=== PATIENT | female | born 1985 | race African-American/Black ===

== ENCOUNTER 2019-06-05 15:37 | Emergency (ER) | payer MEDICARE, OTHER ==
--- NOTE | 2019-06-05 17:28 | RAD ---
RIGHT FOOT THREE VIEWS: 06/05/19 HISTORY: Diabetic foot ulcer. Fairly extensive vascular calcifications are present. There is no plain film evidence for osteomyelit is. IMPRESSION: No plain film evidence of osteomyelitis. POS: [facility]
[2019-06-05 17:54] LABS: #Basophils 0.1 thou/uL (0.0-0.2); #Eosinphils 0.3 thou/uL (0.0-0.7); #Lymphocytes 2.2 thou/uL (1.20-3.40); #Monocytes 0.4 thou/uL (0.11-0.59); #Neutrophils 6.4 thou/uL (1.40-6.50); %Basophils 0.6 % (0.0-1.0); %Eosinophils 3.2 % (0.0-10.0); %Lymphocytes 23.1 % (21.0-51.0); %Monocytes 4.5 % (0.0-10.0); %Neutrophils 68.6 % (42.0-75.0); Hemoglobin 11.7 g/dL (12.0-16.0); Mean Corpuscular HGB CONC 32.6 g/dL (32.0-36.0); Mean Corpuscular Hemoglobin 28.5 pg (27.0-31.0); Mean Corpuscular Volume 87.5 fL (78.0-98.0); Mean Platelet Volume 6.9 fL (7.4-10.4); Platelet Count 333 thou/uL (130-400); RBC Distribution Width 13.4 % (11.5-14.5); Red Blood Cell (RBC) Count 4.11 mill/uL (4.20-5.40); White Blood Cell (WBC) Count 9.4 thou/uL (4.8-10.8)
[2019-06-05] MEDS ORDERED: Lidocaine 1% PF 5 ML VIAL ONE (18:08)
[2019-06-05 18:21] LABS: ALT (SGPT) 9 U/L (8-55); AST (SGOT) 11 U/L (5-34); Albumin 3.8 g/dL (3.5-5.0); Alkaline Phosphatase 127 U/L (40-110); Anion Gap 12 mmol/L (10-20); BUN (Urea Nitrogen) 26 mg/dL (7.0-18.7); Bilirubin, Total 0.2 mg/dL (0.2-1.2); Calc. Creatinine Clearance 0 mL/min (70-130); Calcium 9.5 mg/dL (7.8-10.44); Carbon Dioxide 23 mmol/L (22-29); Chloride 106 mmol/L (98-107); Estimated GFR-MDRD 25; Globulin 3.9 g/dL (2.4-3.5); Glucose 306 mg/dL (70-105); Protein, Total 7.7 g/dL (6.0-8.3); Sodium 137 mmol/L (136-145)
[2019-06-05] MEDS ORDERED: Metoprolol Tartrate 25 MG TAB ONE (18:41)
== END 2019-06-05 18:50 | disposition home or self-care (01) ==
LOC: ERS 15:37
DX: S90.821A Blister (nonthermal), right foot, initial encounter (principal); I10 Essential (primary) hypertension; E11.9 Type 2 diabetes mellitus without complications; Z79.4 Long term (current) use of insulin; Z79.899 Other long term (current) drug therapy; X58.XXXA Exposure to other specified factors, initial encounter
CPT/HCPCS: 36415; 80053; 83605; 85025; J2001

== ENCOUNTER 2020-08-11 17:51 | Inpatient (IN) | payer MEDICARE, OTHER ==
[2020-08-11 18:34] LABS: Actual Bicarbonate (HCO3v) 19 mEq/L (22-28); Analyzer IN Cardio ER; Base Excess -6.2 mEq/L (-2.0 to +3.0); Calcium, Ionized (venous) 1.12 mmol/L (1.16-1.32); Chloride (VBG) 100 mmol/L (98-106); Hemoglobin (Hb) 11.4 g/dL (11.7-15.5); Potassium (VBG) 4.53 mmol/L (3.70-5.30); Sodium 139.5 mmol/L (133-146); pH (venous) 7.35 (7.32-7.43)
[2020-08-11 18:44] LABS: #Lymphocytes 0.7 thou/uL (1.20-3.40); #Monocytes 0.2 thou/uL (0.11-0.59); #Neutrophils 8.5 thou/uL (1.40-6.50); %Basophils 0.5 % (0.0-1.0); %Eosinophils 0.1 % (0.0-10.0); %Lymphocytes 7.7 % (21.0-51.0); %Monocytes 1.7 % (0.0-10.0); %Neutrophils 90.1 % (42.0-75.0); Hemoglobin 10.5 g/dL (12.0-16.0); Mean Corpuscular HGB CONC 32.4 g/dL (32.0-36.0); Mean Corpuscular Hemoglobin 27.6 pg (27.0-31.0); Mean Corpuscular Volume 85.2 fL (78.0-98.0); Mean Platelet Volume 7.5 fL (7.4-10.4); Platelet Count 252 thou/uL (130-400); RBC Distribution Width 13.5 % (11.5-14.5); Red Blood Cell (RBC) Count 3.81 mill/uL (4.20-5.40); White Blood Cell (WBC) Count 9.4 thou/uL (4.8-10.8)
[2020-08-11 19:10] LABS: Phosphorus 3.9 mg/dL (2.3-4.7)
[2020-08-11] MEDS ORDERED: Nitroglycerin 2% Ointment 1 INCH/1 GM Packet ONE (19:10)
[2020-08-11] MEDS ORDERED: hydrALAZINE 20 MG/ML VIAL ONE (19:10)
[2020-08-11 19:12] LABS: ALT (SGPT) 8 U/L (8-55); AST (SGOT) 9 U/L (5-34); Albumin 4.7 g/dL (3.5-5.0); Alkaline Phosphatase 135 U/L (40-110); Anion Gap 25 mmol/L (10-20); BUN (Urea Nitrogen) 32 mg/dL (7.0-18.7); Bilirubin, Total 0.5 mg/dL (0.2-1.2); Calc. Creatinine Clearance 0 mL/min (70-130); Calcium 9.9 mg/dL (7.8-10.44); Carbon Dioxide 20 mmol/L (22-29); Chloride 100 mmol/L (98-107); Globulin 3.8 g/dL (2.4-3.5); Magnesium 2.3 mg/dL (1.6-2.6); Potassium 4.6 mmol/L (3.5-5.1); Protein, Total 8.5 g/dL (6.0-8.3); Sodium 140 mmol/L (136-145)
[2020-08-11] MEDS ORDERED: Labetalol HCl 100 MG/20 ML VIAL ONE (19:15)
[2020-08-11 19:20] LABS: Glucose 648 mg/dL (70-105)
[2020-08-11] MEDS ORDERED: Insulin Regular 300 UNITS/3 ML VIAL ONE (19:20)
[2020-08-11] MEDS ORDERED: Dextrose 5 %-0.45 % NaCl 1,000 ML IV PRN (19:57)
[2020-08-11] MEDS ORDERED: NS 0.9% w/ 20 MEQ KCL 1,000 ML IV PRN (19:57)
[2020-08-11] MEDS ORDERED: Electrolyte Replacement Protocol 1 EACH IVPB ONE (19:57)
[2020-08-11] MEDS ORDERED: Sodium Chloride 0.9% 1,000 ML IV PRN ×4 (19:57)
[2020-08-11] MEDS ORDERED: HUMULIN R 100 UNITS in Sodium Chloride 0.9% 100 ML IVPB SCH (20:00)
[2020-08-11] MEDS ORDERED: Labetalol HCl 100 MG/20 ML VIAL SLOW IVP PRN (20:02)
[2020-08-11 20:49] LABS: Anion Gap 20 mmol/L (10-20); BUN (Urea Nitrogen) 30 mg/dL (7.0-18.7); Calc. Creatinine Clearance 0 mL/min (70-130); Calcium 8.7 mg/dL (7.8-10.44); Carbon Dioxide 19 mmol/L (22-29); Chloride 108 mmol/L (98-107); Glucose 491 mg/dL (70-105); Potassium 3.6 mmol/L (3.5-5.1); Sodium 143 mmol/L (136-145)
[2020-08-11] MEDS ORDERED: Ondansetron PF 4 MG/2 ML Vial ONE (21:02)
[2020-08-11 21:56] LABS: SARS-CoV-2 NAA Rapid Test Not Detected (NotDetected)
[2020-08-11] MEDS: NS 0.9% w/ 20 MEQ KCL 1,000 ML IV PRN (23:10)
[2020-08-11] MEDS: cloNIDine 0.3mg/24 Hour PATCH TD SCH (23:11)
[2020-08-12] MEDS: Ondansetron PF 4 MG/2 ML Vial IVP PRN ×3 (00:27→20:23)
[2020-08-12] MEDS ORDERED: Labetalol HCl 100 MG/20 ML VIAL SLOW IVP SCH (00:30)
[2020-08-12] MEDS: NS 0.9% w/ 20 MEQ KCL 1,000 ML IV PRN (00:34)
[2020-08-12 01:13] LABS: Anion Gap 17 mmol/L (10-20); BUN (Urea Nitrogen) 27 mg/dL (7.0-18.7); Calc. Creatinine Clearance 16 mL/min (70-130); Carbon Dioxide 20 mmol/L (22-29); Chloride 113 mmol/L (98-107); Glucose 318 mg/dL (70-105); Sodium 146 mmol/L (136-145)
[2020-08-12] MEDS: D5 1/2 NS w/20 mEq KCL 1,000 ML IV PRN ×2 (02:17→05:46)
[2020-08-12] MEDS: Acetaminophen 325 MG TAB PO PRN (03:18)
[2020-08-12] MEDS ORDERED: Promethazine HCl 25 MG in Sodium Chloride 0.9% 50 ML IVPB SCH (04:00)
[2020-08-12 04:36] LABS: #Lymphocytes 1.7 thou/uL (1.20-3.40); #Monocytes 0.5 thou/uL (0.11-0.59); #Neutrophils 8.3 thou/uL (1.40-6.50); %Basophils 0.3 % (0.0-1.0); %Eosinophils 0.1 % (0.0-10.0); %Lymphocytes 16.3 % (21.0-51.0); %Monocytes 4.5 % (0.0-10.0); %Neutrophils 78.8 % (42.0-75.0); Hemoglobin 9.5 g/dL (12.0-16.0); Mean Corpuscular HGB CONC 32.4 g/dL (32.0-36.0); Mean Corpuscular Hemoglobin 27.5 pg (27.0-31.0); Mean Corpuscular Volume 85.1 fL (78.0-98.0); Mean Platelet Volume 7.1 fL (7.4-10.4); Platelet Count 278 thou/uL (130-400); RBC Distribution Width 13.6 % (11.5-14.5); Red Blood Cell (RBC) Count 3.44 mill/uL (4.20-5.40); White Blood Cell (WBC) Count 10.6 thou/uL (4.8-10.8)
[2020-08-12 04:43] LABS: Anion Gap 12 mmol/L (10-20); BUN (Urea Nitrogen) 25 mg/dL (7.0-18.7); Calc. Creatinine Clearance 16 mL/min (70-130); Calcium 9.4 mg/dL (7.8-10.44); Carbon Dioxide 23 mmol/L (22-29); Chloride 114 mmol/L (98-107); Glucose 228 mg/dL (70-105); Sodium 145 mmol/L (136-145)
[2020-08-12 07:44] LABS: Bacteria/HPF None Seen HPF (None Seen); Bilirubin Negative (Negative); Blood, Urine Trace (Negative); Clarity Clear (Clear); Glucose, Urine (Dipstick) Greater than 1000 mg/dL (Negative); Ketone, Urine 10 mg/dL (Negative); Leukocyte Negative Leu/uL (Negative); Nitrite Negative (Negative); Protein, Urine (Dipstick) 200 mg/dL (Neg-Trace); RBC/HPF 0-3 HPF (0-3); Specific Gravity, Urine 1.009 (1.002-1.036); Urobilinogen Normal mg/dL (Less than 2); pH, Urine 5.5 (5.0-9.0)
[2020-08-12 07:48] LABS: Urine Culture Reflex No No
[2020-08-12 07:54] LABS: Creatinine, Urine 28.36 mg/dL (47-110)
[2020-08-12] MEDS ORDERED: Famotidine 20 MG TAB PO SCH (09:00)
[2020-08-12] MEDS ORDERED: cloNIDine 0.1 MG TAB PO SCH (09:30)
[2020-08-12] MEDS: Enoxaparin Sodium 30 MG/0.3 ML SYRINGE SC SCH (09:32)
[2020-08-12] MEDS ORDERED: Carvedilol 6.25 MG TAB ONE (13:04)
[2020-08-12] MEDS ORDERED: cloNIDine 0.1 MG TAB PO PRN (14:13)
[2020-08-12] MEDS ORDERED: Lantus 1000 UNITS/10 ML VIAL SC SCH (14:15)
[2020-08-12] MEDS ORDERED: Insulin Regular 300 UNITS/3 ML VIAL SC PRN ×2 (14:15→17:33)
[2020-08-12] MEDS ORDERED: Amlodipine 5 MG TAB PO SCH ×2 (14:15→21:00)
[2020-08-12] MEDS ORDERED: 1/2 NS w/KCL 20 mEq 1,000 ML IV SCH (14:15)
[2020-08-12] MEDS ORDERED: Carvedilol 6.25 MG TAB PO SCH (14:15)
[2020-08-12] MEDS ORDERED: Dextrose 5% in Water 1,000 ML IV PRN (14:15)
[2020-08-12 16:28] LABS: Albumin 3.7 g/dL (3.5-5.0); Anion Gap 15 mmol/L (10-20); BUN (Urea Nitrogen) 19 mg/dL (7.0-18.7); BUN/Creatinine Ratio 5.85; Calc. Creatinine Clearance 18 mL/min (70-130); Calcium 9.4 mg/dL (7.8-10.44); Carbon Dioxide 20 mmol/L (22-29); Chloride 115 mmol/L (98-107); Glucose 101 mg/dL (70-105); Magnesium 1.8 mg/dL (1.6-2.6); Phosphorus 1.7 mg/dL (2.3-4.7); Potassium 4.6 mmol/L (3.5-5.1); Sodium 145 mmol/L (136-145)
[2020-08-12] MEDS ORDERED: Electrolyte Replacement Protocol FS PRN (17:00)
[2020-08-12] MEDS ORDERED: NIFEdipine XL 30 MG TAB PO SCH (17:00)
[2020-08-12] MEDS ORDERED: K-Phos Neutral 250 MG TAB PO SCH (17:00)
[2020-08-12] MEDS ORDERED: Sodium Chloride 0.45% 1,000 ML IV SCH (17:00)
[2020-08-12] MEDS ORDERED: Magnesium 2 GM/50 ML 2 GM in Premix Bag 1 BAG IVPB SCH (17:45)
[2020-08-12] MEDS ORDERED: Sodium Bicarbonate Tab 325 MG TAB PO SCH ×2 (18:15→21:00)
[2020-08-12 18:41] LABS: BHCG - Serum Negative (NEGATIVE); Pregs Control Background? CLEAR/WHITE (CLR/WHITE); Pregs Control Bar Appear? YES (CONTROL BAR)
[2020-08-12] MEDS ORDERED: Metoprolol Tartrate 50 MG TAB PO SCH (21:00)
[2020-08-12] MEDS: NIFEdipine XL 30 MG TAB PO SCH (21:05)
[2020-08-12 21:23] LABS: Amphetamine Not Detected (NotDetected); Barbiturates Screen Not Detected (NotDetected); Benzodiazepine Screen Not Detected (NotDetected); Cocaine Metabolite Screen Not Detected (NotDetected); Medtox Control Line Valid? VALID (VALID); Medtox Reader # READER 1; Methadone Not Detected (NotDetected); Methamphetamine Not Detected (NotDetected); Opiate Screen Not Detected (NotDetected); Oxycodone Screen Not Detected (NotDetected); Phencyclidine (PCP) Not Detected (NotDetected); THC/Cannabinoid Screen Not Detected (NotDetected); Tricyclic Screen Not Detected (NotDetected)
[2020-08-12] MEDS: Carvedilol 6.25 MG TAB PO SCH (22:05)
[2020-08-12] MEDS ORDERED: Dextrose 5 %-0.45 % NaCl 1,000 ML IV SCH (23:00)
[2020-08-13] MEDS ORDERED: Sodium Chloride 0.45% 1,000 ML IV SCH (03:00)
[2020-08-13] MEDS: Acetaminophen 325 MG TAB PO PRN ×2 (04:01→21:46)
[2020-08-13 04:30] LABS: Anion Gap 13 mmol/L (10-20); BUN (Urea Nitrogen) 19 mg/dL (7.0-18.7); Calc. Creatinine Clearance 16 mL/min (70-130); Calcium 9.4 mg/dL (7.8-10.44); Carbon Dioxide 20 mmol/L (22-29); Chloride 112 mmol/L (98-107); Glucose 111 mg/dL (70-105); Magnesium 2.6 mg/dL (1.6-2.6); Potassium 4.1 mmol/L (3.5-5.1); Sodium 141 mmol/L (136-145)
[2020-08-13] MEDS ORDERED: Morphine 4 MG/ML VIAL SLOW IVP SCH (06:00)
[2020-08-13 06:06] LABS: #Basophils 0.1 thou/uL (0.0-0.2); #Eosinphils 0.1 thou/uL (0.0-0.7); #Lymphocytes 2.9 thou/uL (1.20-3.40); #Monocytes 0.7 thou/uL (0.11-0.59); #Neutrophils 8.1 thou/uL (1.40-6.50); %Basophils 0.8 % (0.0-1.0); %Eosinophils 0.8 % (0.0-10.0); %Lymphocytes 24.5 % (21.0-51.0); %Neutrophils 67.9 % (42.0-75.0); Hemoglobin 9.1 g/dL (12.0-16.0); Mean Corpuscular HGB CONC 32.1 g/dL (32.0-36.0); Mean Corpuscular Hemoglobin 27.5 pg (27.0-31.0); Mean Corpuscular Volume 85.8 fL (78.0-98.0); Mean Platelet Volume 7.1 fL (7.4-10.4); Platelet Count 244 thou/uL (130-400); RBC Distribution Width 14.4 % (11.5-14.5); RBC Morphology Normal; White Blood Cell (WBC) Count 11.9 thou/uL (4.8-10.8)
[2020-08-13] MEDS: Enoxaparin Sodium 30 MG/0.3 ML SYRINGE SC SCH (08:21)
[2020-08-13] MEDS: Carvedilol 6.25 MG TAB PO SCH ×2 (08:21→21:23)
[2020-08-13] MEDS: NIFEdipine XL 30 MG TAB PO SCH (08:22)
[2020-08-13] MEDS: Lantus 1000 UNITS/10 ML VIAL SC SCH (08:22)
[2020-08-13] MEDS: Sodium Bicarbonate 150 MEQ in Dextrose 5% in Water 1,000 ML IV SCH (08:28)
[2020-08-13] MEDS ORDERED: Metoprolol Tartrate 50 MG TAB PO SCH (09:00)
[2020-08-13] MEDS: Labetalol HCl 100 MG/20 ML VIAL SLOW IVP PRN (13:19)
[2020-08-13] MEDS: Polyethylene Glycol 3350 17 GM Packet PO SCH (21:24)
[2020-08-13] MEDS: Senokot S 8.6-50 MG TAB PO SCH (21:24)
[2020-08-13] MEDS: Ondansetron PF 4 MG/2 ML Vial IVP PRN (21:34)
[2020-08-13] MEDS ORDERED: traZODone HCl 50 MG TAB PO SCH (23:45)
[2020-08-14] MEDS: Acetaminophen 325 MG TAB PO PRN ×3 (02:52→22:59)
[2020-08-14] MEDS: Sodium Bicarbonate 150 MEQ in Dextrose 5% in Water 1,000 ML IV SCH (03:14)
[2020-08-14 04:03] LABS: Anion Gap 12 mmol/L (10-20); BUN (Urea Nitrogen) 16 mg/dL (7.0-18.7); Calc. Creatinine Clearance 17 mL/min (70-130); Calcium 8.6 mg/dL (7.8-10.44); Carbon Dioxide 30 mmol/L (22-29); Chloride 102 mmol/L (98-107); Glucose 139 mg/dL (70-105); Potassium 3.4 mmol/L (3.5-5.1); Sodium 141 mmol/L (136-145)
[2020-08-14] MEDS ORDERED: Potassium Chloride 20 MEQ TAB PO SCH (06:15)
[2020-08-14] MEDS: Dextrose 5%-Lactated Ringers 1,000 ML IV SCH ×2 (06:52→17:50)
[2020-08-14 08:45] VITALS: BMI 17.5
[2020-08-14] MEDS ORDERED: NIFEdipine XL 30 MG TAB PO SCH (09:00)
[2020-08-14] MEDS ORDERED: Pantoprazole 40 MG VIAL IVP SCH (09:00)
[2020-08-14] MEDS: NIFEdipine XL 60 MG TAB PO SCH (09:02)
[2020-08-14] MEDS: Senokot S 8.6-50 MG TAB PO SCH ×2 (09:02→20:48)
[2020-08-14] MEDS: Enoxaparin Sodium 30 MG/0.3 ML SYRINGE SC SCH (09:03)
[2020-08-14] MEDS: Carvedilol 6.25 MG TAB PO SCH ×2 (09:03→20:45)
[2020-08-14] MEDS: Lantus 1000 UNITS/10 ML VIAL SC SCH (09:05)
[2020-08-14] MEDS: Megestrol Acetate 800 MG/20 ML UDCUP PO SCH (09:06)
[2020-08-14] MEDS: traZODone HCl 50 MG TAB PO SCH (20:45)
[2020-08-14] MEDS: Pantoprazole 40 MG VIAL IVP SCH (20:46)
[2020-08-14] MEDS: Polyethylene Glycol 3350 17 GM Packet PO SCH (20:46)
[2020-08-14] MEDS: Ondansetron PF 4 MG/2 ML Vial IVP PRN (23:00)
[2020-08-15] MEDS: Dextrose 5%-Lactated Ringers 1,000 ML IV SCH (02:46)
[2020-08-15 04:18] LABS: Anion Gap 13 mmol/L (10-20); BUN (Urea Nitrogen) 17 mg/dL (7.0-18.7); Calc. Creatinine Clearance 17 mL/min (70-130); Calcium 8.6 mg/dL (7.8-10.44); Carbon Dioxide 27 mmol/L (22-29); Chloride 102 mmol/L (98-107); Glucose 250 mg/dL (70-105); Potassium 3.7 mmol/L (3.5-5.1); Sodium 138 mmol/L (136-145)
[2020-08-15] MEDS: Carvedilol 6.25 MG TAB PO SCH (06:34)
[2020-08-15] MEDS ORDERED: PROPOFOL 200 MG/20 ML VIAL ONE (09:13)
[2020-08-15] MEDS ORDERED: Lidocaine 1% PF 5 ML VIAL ONE (09:13)
[2020-08-15] MEDS: Enoxaparin Sodium 30 MG/0.3 ML SYRINGE SC SCH (11:11)
[2020-08-15] MEDS: Lantus 1000 UNITS/10 ML VIAL SC SCH (11:11)
[2020-08-15] MEDS: NIFEdipine XL 60 MG TAB PO SCH (11:12)
[2020-08-15] MEDS: Megestrol Acetate 800 MG/20 ML UDCUP PO SCH (11:12)
[2020-08-15] MEDS: Pantoprazole 40 MG VIAL IVP SCH ×2 (11:12→20:16)
[2020-08-15] MEDS: Senokot S 8.6-50 MG TAB PO SCH (11:12)
[2020-08-15] MEDS: Ondansetron PF 4 MG/2 ML Vial IVP PRN (11:18)
[2020-08-15] MEDS: Labetalol HCl 100 MG/20 ML VIAL SLOW IVP PRN (11:20)
[2020-08-15] MEDS ORDERED: Lantus 1000 UNITS/10 ML VIAL SC SCH ×3 (11:45→12:15)
[2020-08-15] MEDS: Insulin Regular 300 UNITS/3 ML VIAL SC PRN ×3 (12:40→18:36)
[2020-08-15] MEDS ORDERED: Metoprolol Tartrate 25 MG TAB PO SCH (12:45)
[2020-08-15] MEDS: hydrALAZINE 20 MG/ML VIAL SLOW IVP PRN (13:39)
[2020-08-15] MEDS ORDERED: Aspirin 81 mg Enteric Coated Tablet PO SCH (14:15)
[2020-08-15] MEDS ORDERED: Iopamidol 370 76% 50 ML VIAL FS ONE (15:11)
[2020-08-15] MEDS: Polyethylene Glycol 3350 17 GM Packet PO SCH (20:12)
[2020-08-15] MEDS: traZODone HCl 50 MG TAB PO SCH (20:16)
[2020-08-15] MEDS: Metoprolol Tartrate 50 MG TAB PO SCH (20:16)
[2020-08-15] MEDS: Dextrose 50% Abboject 50 ML SYRINGE IVP PRN (23:59)
[2020-08-16] MEDS: hydrALAZINE 20 MG/ML VIAL SLOW IVP PRN (04:50)
[2020-08-16] MEDS: Insulin Regular 300 UNITS/3 ML VIAL SC PRN ×2 (04:51→17:38)
[2020-08-16] MEDS: Mag-Al Plus 1200 MG/1200 MG/120 MG/30 ML UDCUP PO PRN ×2 (06:19→10:15)
[2020-08-16 06:29] LABS: Anion Gap 12 mmol/L (10-20); BUN (Urea Nitrogen) 18 mg/dL (7.0-18.7); Calc. Creatinine Clearance 17 mL/min (70-130); Calcium 9.2 mg/dL (7.8-10.44); Carbon Dioxide 26 mmol/L (22-29); Chloride 101 mmol/L (98-107); Glucose 186 mg/dL (70-105); Potassium 4.1 mmol/L (3.5-5.1); Sodium 135 mmol/L (136-145)
[2020-08-16] MEDS: Metoprolol Tartrate 50 MG TAB PO SCH ×2 (08:40→20:02)
[2020-08-16] MEDS: NIFEdipine XL 90 MG TAB PO SCH (08:40)
[2020-08-16] MEDS: Aspirin 81 mg Enteric Coated Tablet PO SCH (08:40)
[2020-08-16] MEDS: Megestrol Acetate 800 MG/20 ML UDCUP PO SCH (08:44)
[2020-08-16] MEDS: Lantus 1000 UNITS/10 ML VIAL SC SCH (08:45)
[2020-08-16] MEDS: Pantoprazole 40 MG VIAL IVP SCH ×2 (08:45→20:02)
[2020-08-16] MEDS: Acetaminophen 325 MG TAB PO PRN (08:46)
[2020-08-16] MEDS ORDERED: Metoclopramide HCl 10 MG/2 ML VIAL IVP PRN (09:26)
[2020-08-16] MEDS: Enoxaparin Sodium 30 MG/0.3 ML SYRINGE SC SCH (10:16)
[2020-08-16] MEDS: metroNIDAZOLE 500 MG in Premix Bag 1 BAG IVPB SCH ×2 (15:53→21:20)
[2020-08-16] MEDS ORDERED: GoLYTELY 4,000 ml Bottle PO SCH (17:00)
[2020-08-16] MEDS: Morphine 4 MG/ML VIAL SLOW IVP PRN (17:40)
[2020-08-16] MEDS: traZODone HCl 50 MG TAB PO SCH (21:20)
[2020-08-16] MEDS: Dextrose 50% Abboject 50 ML SYRINGE IVP PRN (23:43)
[2020-08-17] MEDS ORDERED: Dextrose 5% in Water 1,000 ML IV SCH (00:45)
[2020-08-17] MEDS: Morphine 4 MG/ML VIAL SLOW IVP PRN (03:04)
[2020-08-17 05:36] LABS: Anion Gap 13 mmol/L (10-20); BUN (Urea Nitrogen) 17 mg/dL (7.0-18.7); Calc. Creatinine Clearance 16 mL/min (70-130); Calcium 8.5 mg/dL (7.8-10.44); Carbon Dioxide 26 mmol/L (22-29); Chloride 97 mmol/L (98-107); Glucose 299 mg/dL (70-105); Potassium 3.6 mmol/L (3.5-5.1); Sodium 132 mmol/L (136-145)
[2020-08-17] MEDS: metroNIDAZOLE 500 MG in Premix Bag 1 BAG IVPB SCH ×3 (06:32→21:39)
[2020-08-17] MEDS ORDERED: PROPOFOL 200 MG/20 ML VIAL ONE ×2 (08:05)
[2020-08-17] MEDS ORDERED: Hyoscyamine Sulfate SL 0.125 mg Tablet PO PRN (08:34)
[2020-08-17] MEDS ORDERED: Ondansetron HCl/PF 4 MG/2 ML Vial IVP PRN (08:42)
[2020-08-17] MEDS ORDERED: Promethazine HCl 25 MG/ML VIAL IM PRN (08:42)
[2020-08-17] MEDS ORDERED: Promethazine HCl 25 MG/ML VIAL SLOW IVP PRN (08:42)
[2020-08-17] MEDS: Megestrol Acetate 800 MG/20 ML UDCUP PO SCH (09:39)
[2020-08-17] MEDS: Pantoprazole 40 MG VIAL IVP SCH ×2 (09:39→20:16)
[2020-08-17] MEDS: Enoxaparin Sodium 30 MG/0.3 ML SYRINGE SC SCH (09:39)
[2020-08-17] MEDS: Aspirin 81 mg Enteric Coated Tablet PO SCH (09:40)
[2020-08-17] MEDS: Metoprolol Tartrate 50 MG TAB PO SCH ×2 (09:40→20:16)
[2020-08-17] MEDS: NIFEdipine XL 90 MG TAB PO SCH (09:42)
[2020-08-17] MEDS: Lantus 1000 UNITS/10 ML VIAL SC SCH (10:04)
[2020-08-17] MEDS: Insulin Regular 300 UNITS/3 ML VIAL SC PRN (11:17)
[2020-08-17 12:34] LABS: #Basophils 0.1 thou/uL (0.0-0.2); #Eosinphils 0.3 thou/uL (0.0-0.7); #Lymphocytes 2.6 thou/uL (1.20-3.40); #Monocytes 0.5 thou/uL (0.11-0.59); #Neutrophils 4.5 thou/uL (1.40-6.50); %Basophils 0.8 % (0.0-1.0); %Eosinophils 3.4 % (0.0-10.0); %Lymphocytes 33.2 % (21.0-51.0); %Monocytes 5.8 % (0.0-10.0); %Neutrophils 56.8 % (42.0-75.0); Hemoglobin 7.8 g/dL (12.0-16.0); Mean Corpuscular HGB CONC 31.5 g/dL (32.0-36.0); Mean Corpuscular Hemoglobin 27.6 pg (27.0-31.0); Mean Corpuscular Volume 87.5 fL (78.0-98.0); Mean Platelet Volume 6.9 fL (7.4-10.4); Platelet Count 199 thou/uL (130-400); RBC Distribution Width 14.4 % (11.5-14.5); Red Blood Cell (RBC) Count 2.84 mill/uL (4.20-5.40)
[2020-08-17] MEDS: traZODone HCl 50 MG TAB PO SCH (21:39)
[2020-08-18] MEDS: metroNIDAZOLE 500 MG in Premix Bag 1 BAG IVPB SCH (05:10)
[2020-08-18 05:31] LABS: #Eosinphils 0.3 thou/uL (0.0-0.7); #Lymphocytes 3.2 thou/uL (1.20-3.40); #Monocytes 0.7 thou/uL (0.11-0.59); #Neutrophils 3.4 thou/uL (1.40-6.50); %Basophils 0.6 % (0.0-1.0); %Eosinophils 4.1 % (0.0-10.0); %Lymphocytes 41.8 % (21.0-51.0); %Monocytes 9.5 % (0.0-10.0); %Neutrophils 44.1 % (42.0-75.0); Hemoglobin 8.3 g/dL (12.0-16.0); Mean Corpuscular HGB CONC 32.1 g/dL (32.0-36.0); Mean Corpuscular Hemoglobin 28.3 pg (27.0-31.0); Mean Corpuscular Volume 88.2 fL (78.0-98.0); Mean Platelet Volume 7.2 fL (7.4-10.4); Platelet Count 195 thou/uL (130-400); RBC Distribution Width 14.7 % (11.5-14.5); Red Blood Cell (RBC) Count 2.92 mill/uL (4.20-5.40); White Blood Cell (WBC) Count 7.6 thou/uL (4.8-10.8)
[2020-08-18 05:57] LABS: Anion Gap 8 mmol/L (10-20); BUN (Urea Nitrogen) 16 mg/dL (7.0-18.7); Calc. Creatinine Clearance 16 mL/min (70-130); Calcium 8.6 mg/dL (7.8-10.44); Carbon Dioxide 29 mmol/L (22-29); Chloride 103 mmol/L (98-107); Glucose 71 mg/dL (70-105); Potassium 3.8 mmol/L (3.5-5.1); Sodium 136 mmol/L (136-145)
[2020-08-18] MEDS: Pantoprazole 40 MG VIAL IVP SCH (08:24)
[2020-08-18] MEDS: NIFEdipine XL 90 MG TAB PO SCH (08:24)
[2020-08-18] MEDS: Metoprolol Tartrate 50 MG TAB PO SCH (08:24)
[2020-08-18] MEDS: Megestrol Acetate 800 MG/20 ML UDCUP PO SCH (08:24)
[2020-08-18] MEDS: Enoxaparin Sodium 30 MG/0.3 ML SYRINGE SC SCH (08:24)
[2020-08-18] MEDS: Aspirin 81 mg Enteric Coated Tablet PO SCH (08:24)
[2020-08-18] MEDS: Lantus 1000 UNITS/10 ML VIAL SC SCH (08:25)
[2020-08-18] MEDS: cloNIDine 0.3mg/24 Hour PATCH TD SCH (08:30)
[2020-08-18] MEDS: Insulin Regular 300 UNITS/3 ML VIAL SC PRN ×2 (08:38→11:16)
[2020-08-18 11:58] VITALS: BP 92/56; TEMP 97.9
== END 2020-08-18 13:18 | disposition home or self-care (01) | DRG 638 ==
LOC: ERS 17:51 → IMCU/EMU 20:03 → SJJU 08-15 09:41
PROVIDERS: ADMIT Internal Medicine; ATTEND Internal Medicine
PROC: 0DB98ZX Excision of Duodenum, Via Natural or Artificial Opening Endoscopic, Diagnostic (ICD-10-PCS; principal; 2020-08-15)
PROC: 0DB78ZX Excision of Stomach, Pylorus, Via Natural or Artificial Opening Endoscopic, Diagnostic (ICD-10-PCS; 2020-08-15)
PROC: 0DBH8ZZ Excision of Cecum, Via Natural or Artificial Opening Endoscopic (ICD-10-PCS; 2020-08-17)
DX: E10.10 Type 1 diabetes mellitus with ketoacidosis without coma (principal); N17.9 Acute kidney failure, unspecified; N18.4 Chronic kidney disease, stage 4 (severe); R64 Cachexia; Z68.1 Body mass index [BMI] 19.9 or less, adult; I12.9 Hypertensive chronic kidney disease with stage 1 through stage 4 chronic kidney disease, or unspecified chronic kidney disease; I16.0 Hypertensive urgency; E10.40 Type 1 diabetes mellitus with diabetic neuropathy, unspecified; E10.22 Type 1 diabetes mellitus with diabetic chronic kidney disease; E10.65 Type 1 diabetes mellitus with hyperglycemia; E83.39 Other disorders of phosphorus metabolism; K21.9 Gastro-esophageal reflux disease without esophagitis; E86.9 Volume depletion, unspecified; E87.8 Other disorders of electrolyte and fluid balance, not elsewhere classified; D63.1 Anemia in chronic kidney disease; E83.42 Hypomagnesemia; K52.9 Noninfective gastroenteritis and colitis, unspecified; D12.0 Benign neoplasm of cecum; Z91.14 Patient's other noncompliance with medication regimen; Z79.4 Long term (current) use of insulin
CPT/HCPCS: 36415; 36416; 74019; 74176; 76705; 80048; 80053; 80306; 81001; 82010; 82570; 82805; 83690; 83735; 84100; 84156; 84300; 84484; 84540; 84703; 85025; 88305; 96374; 96375; C9113; J0360; J0744; J1650; J1815; J2270; J2405; J2550; J2704; J2765; J3475; J3480; J3490; J7070; Q9967; U0002

== ENCOUNTER 2020-08-18 16:37 | Emergency (ER) | payer MEDICARE, OTHER ==
[2020-08-18 17:40] LABS: #Basophils 0.1 thou/uL (0.0-0.2); #Eosinphils 0.2 thou/uL (0.0-0.7); #Lymphocytes 1.3 thou/uL (1.20-3.40); #Monocytes 0.6 thou/uL (0.11-0.59); %Basophils 0.7 % (0.0-1.0); %Eosinophils 2.6 % (0.0-10.0); %Lymphocytes 18.4 % (21.0-51.0); %Monocytes 8.5 % (0.0-10.0); %Neutrophils 69.8 % (42.0-75.0); Hemoglobin 8.4 g/dL (12.0-16.0); Mean Corpuscular HGB CONC 32.7 g/dL (32.0-36.0); Mean Corpuscular Hemoglobin 28.9 pg (27.0-31.0); Mean Corpuscular Volume 88.5 fL (78.0-98.0); Mean Platelet Volume 7.2 fL (7.4-10.4); Platelet Count 186 thou/uL (130-400); RBC Distribution Width 14.7 % (11.5-14.5); Red Blood Cell (RBC) Count 2.91 mill/uL (4.20-5.40); White Blood Cell (WBC) Count 7.1 thou/uL (4.8-10.8)
[2020-08-18 17:59] LABS: ALT (SGPT) Less than 7 U/L (8-55); AST (SGOT) 13 U/L (5-34); Albumin 2.9 g/dL (3.5-5.0); Alkaline Phosphatase 65 U/L (40-110); Anion Gap 12 mmol/L (10-20); BUN (Urea Nitrogen) 15 mg/dL (7.0-18.7); Bilirubin, Total 0.4 mg/dL (0.2-1.2); Calc. Creatinine Clearance 0 mL/min (70-130); Calcium 7.7 mg/dL (7.8-10.44); Carbon Dioxide 21 mmol/L (22-29); Chloride 108 mmol/L (98-107); Globulin 2.5 g/dL (2.4-3.5); Glucose 169 mg/dL (70-105); Lipase 30 U/L (8-78); Potassium 4.2 mmol/L (3.5-5.1); Protein, Total 5.4 g/dL (6.0-8.3); Sodium 137 mmol/L (136-145)
[2020-08-18 18:12] LABS: Acetaminophen Less than 6.0 mcg/mL (10.0-30.0); Alcohol Less than 10 mg/dL (Less than 10); Salicylate Less than 8.0 mg/dL (15.0-30.0)
[2020-08-18 18:18] LABS: Actual Bicarbonate (HCO3v) 21 mEq/L (22-28); Base Excess -3.5 mEq/L (-2.0 to +3.0); Calcium, Ionized (venous) 1.03 mmol/L (1.16-1.32); Chloride (VBG) 108 mmol/L (98-106); Hemoglobin (Hb) 9.5 g/dL (11.7-15.5); Potassium (VBG) 4.03 mmol/L (3.70-5.30); Sodium 133.8 mmol/L (133-146); pH (venous) 7.41 (7.32-7.43)
[2020-08-18 18:22] LABS: Amphetamine Not Detected (NotDetected); Barbiturates Screen Not Detected (NotDetected); Benzodiazepine Screen Not Detected (NotDetected); Cocaine Metabolite Screen Not Detected (NotDetected); Medtox Control Line Valid? VALID (VALID); Medtox Reader # READER 4; Methadone Not Detected (NotDetected); Methamphetamine Not Detected (NotDetected); Opiate Screen Detected (NotDetected); Oxycodone Screen Not Detected (NotDetected); Phencyclidine (PCP) Not Detected (NotDetected); THC/Cannabinoid Screen Not Detected (NotDetected); Tricyclic Screen Not Detected (NotDetected)
[2020-08-19 06:49] LABS: Bacteria/HPF None Seen HPF (None Seen); Bilirubin Negative (Negative); Blood, Urine Negative (Negative); Clarity Turbid (Clear); Glucose, Urine (Dipstick) 150 mg/dL (Negative); Ketone, Urine Negative (Negative); Leukocyte 25 Leu/uL (Negative); Nitrite Negative (Negative); Protein, Urine (Dipstick) 300 mg/dL (Neg-Trace); RBC/HPF 0-3 HPF (0-3); Specific Gravity, Urine 1.018 (1.002-1.036); Squamous Epithelial 0-3 HPF (0-3); Urobilinogen Normal mg/dL (Less than 2)
== END 2020-08-18 19:58 | disposition home or self-care (01) ==
LOC: ERS 16:37
DX: M62.81 Muscle weakness (generalized) (principal); E11.649 Type 2 diabetes mellitus with hypoglycemia without coma; K21.9 Gastro-esophageal reflux disease without esophagitis; I10 Essential (primary) hypertension; E11.40 Type 2 diabetes mellitus with diabetic neuropathy, unspecified
CPT/HCPCS: 36415; 36416; 51701; 80306; 80307; 81003; 81015; 82805; 83690; 93005

== ENCOUNTER 2022-01-10 18:50 | Inpatient (IN) | payer OTHER ==
[2022-01-10] MEDS ORDERED: Labetalol HCl 100 MG/20 ML VIAL ONE (18:58)
[2022-01-10] MEDS ORDERED: Lorazepam 2 MG/ML VIAL ONE ×2 (19:07→21:04)
[2022-01-10] MEDS ORDERED: hydrALAZINE 20 MG/ML VIAL ONE (19:21)
[2022-01-10 19:38] LABS: #Eosinphils 0.1 thou/uL (0.0-0.7); #Lymphocytes 0.6 thou/uL (1.20-3.40); #Monocytes 0.2 thou/uL (0.11-0.59); %Basophils 0.6 % (0.0-1.0); %Eosinophils 1.1 % (0.0-10.0); %Lymphocytes 9.8 % (21.0-51.0); %Monocytes 3.2 % (0.0-10.0); %Neutrophils 85.3 % (42.0-75.0); Hemoglobin 13.1 g/dL (12.0-16.0); Mean Corpuscular HGB CONC 32.4 g/dL (32.0-36.0); Mean Corpuscular Volume 89.4 fL (78.0-98.0); Mean Platelet Volume 9.9 fL (7.4-10.4); Platelet Count 156 thou/uL (130-400); RBC Distribution Width 13.8 % (11.5-14.5); Red Blood Cell (RBC) Count 4.51 mill/uL (4.20-5.40); White Blood Cell (WBC) Count 5.8 thou/uL (4.8-10.8)
[2022-01-10 19:42] LABS: Actual Bicarbonate (HCO3v) 22 mEq/L (22-28); Analyzer IN Cardio ER; Base Excess -3.3 mEq/L (-2.0 to +3.0); Calcium, Ionized (venous) 1.01 mmol/L (1.16-1.32); Chloride (VBG) 96 mmol/L (98-106); Hemoglobin (Hb) 13.9 g/dL (11.7-15.5); Potassium (VBG) 3.34 mmol/L (3.70-5.30); Sodium 129.6 mmol/L (133-146); pH (venous) 7.37 (7.32-7.43)
[2022-01-10 19:52] LABS: BHCG - Serum Negative (NEGATIVE); Pregs Control Background? CLEAR/WHITE (CLR/WHITE); Pregs Control Bar Appear? YES (CONTROL BAR)
[2022-01-10 20:01] LABS: Acetaminophen Less than 10.0 mcg/mL (10.0-30.0); Alcohol Less than 10 mg/dL (Less than 10); Salicylate Less than 8.0 mg/dL (15.0-30.0)
[2022-01-10 20:02] LABS: ALT (SGPT) 9 U/L (8-55); AST (SGOT) 12 U/L (5-34); Albumin 2.7 g/dL (3.5-5.0); Alkaline Phosphatase 93 U/L (40-110); Anion Gap 16 mmol/L (10-20); BUN (Urea Nitrogen) 32 mg/dL (7.0-18.7); Bilirubin, Total 0.3 mg/dL (0.2-1.2); Calc. Creatinine Clearance 0 mL/min (70-130); Carbon Dioxide 18 mmol/L (22-29); Chloride 97 mmol/L (98-107); Estimated GFR 8; Globulin 3.1 g/dL (2.4-3.5); Lipase 38 U/L (8-78); Magnesium 1.8 mg/dL (1.6-2.6); Potassium 3.3 mmol/L (3.5-5.1); Protein, Total 5.8 g/dL (6.0-8.3); Sodium 128 mmol/L (136-145)
[2022-01-10 20:05] LABS: Bacteria/HPF None Seen HPF (None Seen); Bilirubin Negative (Negative); Blood, Urine 1+ (Negative); Clarity Clear (Clear); Glucose, Urine (Dipstick) Greater than 1000 mg/dL (Negative); Ketone, Urine 10 mg/dL (Negative); Leukocyte Negative Leu/uL (Negative); Nitrite Negative (Negative); Protein, Urine (Dipstick) 600 mg/dL (Neg-Trace); RBC/HPF 0-3 HPF (0-3); Specific Gravity, Urine 1.015 (1.002-1.036); Squamous Epithelial 0-3 HPF (0-3); Urobilinogen Normal mg/dL (Less than 2); WBC/HPF 0-3 HPF (0-3)
[2022-01-10 20:11] LABS: Amphetamine Not Detected (NotDetected); Barbiturates Screen Not Detected (NotDetected); Benzodiazepine Screen Not Detected (NotDetected); Cocaine Metabolite Screen Not Detected (NotDetected); Methadone Not Detected (NotDetected); Methamphetamine Not Detected (NotDetected); Opiate Screen Not Detected (NotDetected); Oxycodone Screen Not Detected (NotDetected); Phencyclidine (PCP) Not Detected (NotDetected); THC/Cannabinoid Screen Not Detected (NotDetected); Tricyclic Screen Not Detected (NotDetected)
[2022-01-10 20:25] LABS: Glucose 791 mg/dL (70-105)
[2022-01-10] MEDS ORDERED: NS 0.9% w/ 20 MEQ KCL 0 ML ONE (20:31)
[2022-01-10] MEDS ORDERED: INSULIN REGULAR IN 0.9 % NACL 100 UNIT/100 ML BAG ONE (20:31)
[2022-01-10] MEDS ORDERED: Potassium Chloride 20 MEQ/100 ML PREMIX BAG ONE (20:40)
[2022-01-10 20:59] LABS: SARS-CoV-2 NAA Rapid Test Not Detected (NotDetected)
[2022-01-10] MEDS ORDERED: Senokot S 8.6-50 MG TAB PO PRN (22:04)
[2022-01-10] MEDS ORDERED: Bisacodyl 5 MG TAB PO PRN (22:04)
[2022-01-10] MEDS ORDERED: Electrolyte Replacement Protocol 1 EACH IVPB PRN (22:04)
[2022-01-10] MEDS ORDERED: Labetalol HCl 100 MG/20 ML VIAL SLOW IVP PRN (22:23)
[2022-01-10] MEDS ORDERED: Midazolam HCl 2 mg/2 ml Vial SLOW IVP PRN (22:26)
[2022-01-10] MEDS ORDERED: Dextrose 5% in Water 1,000 ML IV SCH (22:30)
[2022-01-10] MEDS ORDERED: HUMULIN R 100 UNITS in Sodium Chloride 0.9% 100 ML IVPB SCH (23:00)
[2022-01-10 23:39] LABS: Anion Gap 18 mmol/L (10-20); BUN (Urea Nitrogen) 33 mg/dL (7.0-18.7); Calc. Creatinine Clearance 9 mL/min (70-130); Calcium 8.9 mg/dL (7.8-10.44); Carbon Dioxide 21 mmol/L (22-29); Chloride 98 mmol/L (98-107); Estimated GFR 8; Glucose 708 mg/dL (70-105); Potassium 5.2 mmol/L (3.5-5.1); Sodium 132 mmol/L (136-145)
[2022-01-11 01:03] LABS: Glucose 601 mg/dL (70-105)
[2022-01-11 01:57] LABS: Glucose 516 mg/dL (70-105)
[2022-01-11] MEDS ORDERED: Potassium Chloride 20 MEQ in Premix Bag 1 BAG IVPB SCH (02:00)
[2022-01-11 03:06] LABS: Phosphorus 4.6 mg/dL (2.3-4.7)
[2022-01-11 03:07] LABS: Anion Gap 18 mmol/L (10-20); BUN (Urea Nitrogen) 36 mg/dL (7.0-18.7); Calc. Creatinine Clearance 9 mL/min (70-130); Calcium 9.3 mg/dL (7.8-10.44); Carbon Dioxide 20 mmol/L (22-29); Chloride 99 mmol/L (98-107); Estimated GFR 7; Glucose 450 mg/dL (70-105); Magnesium 1.8 mg/dL (1.6-2.6); Potassium 3.1 mmol/L (3.5-5.1); Sodium 134 mmol/L (136-145)
[2022-01-11] MEDS: Famotidine 20 MG TAB PO SCH ×2 (04:06→04:09)
[2022-01-11 07:04] LABS: Anion Gap 17 mmol/L (10-20); BUN (Urea Nitrogen) 36 mg/dL (7.0-18.7); Calc. Creatinine Clearance 9 mL/min (70-130); Calcium 9.1 mg/dL (7.8-10.44); Carbon Dioxide 20 mmol/L (22-29); Chloride 101 mmol/L (98-107); Estimated GFR 7; Glucose 233 mg/dL (70-105); Potassium 3.8 mmol/L (3.5-5.1); Sodium 134 mmol/L (136-145)
[2022-01-11] MEDS: Dextrose 50% Abboject 50 ML SYRINGE ONE ×2 (07:29→16:48)
[2022-01-11] MEDS ORDERED: Dextrose 50% Abboject 50 ML SYRINGE SLOW IVP SCH (07:45)
[2022-01-11] MEDS: Heparin 5,000 UNITS/ML VIAL SC SCH ×3 (08:13→20:03)
[2022-01-11] MEDS: Insulin Glargine 30 UNITS/0.3 ML VIAL SC SCH (08:13)
[2022-01-11] MEDS ORDERED: Famotidine 20 MG TAB PO SCH (09:00)
[2022-01-11] MEDS ORDERED: NIFEdipine XL 60 MG TAB PO SCH (10:00)
[2022-01-11] MEDS ORDERED: NIFEdipine XL 90 MG TAB PO SCH (10:30)
[2022-01-11 14:56] LABS: HBSAg Index 0.29 S/CO (0-0.99); Hep B Surf Ag Non-Reactive S/CO (NonReactive)
[2022-01-11 14:58] LABS: HBSAB Concentration 190.08 mIU/mL; Hep B Surf AB Reactive (NonReactive)
[2022-01-11] MEDS ORDERED: Dextrose 50% Abboject 50 ML SYRINGE ONE (19:04)
[2022-01-11] MEDS ORDERED: Dextrose 10% in Water 250 ML IVPB SCH (19:30)
[2022-01-11] MEDS ORDERED: Dextrose 5 % And 0.9 % NaCl 1,000 ML IV SCH (19:30)
[2022-01-11] MEDS: Acetaminophen 325 MG TAB PO PRN (20:03)
[2022-01-11] MEDS ORDERED: Metoprolol Tartrate 25 MG TAB PO SCH (21:00)
[2022-01-12 04:56] LABS: Anion Gap 14 mmol/L (10-20); BUN (Urea Nitrogen) 15 mg/dL (7.0-18.7); Calc. Creatinine Clearance 14 mL/min (70-130); Calcium 8.6 mg/dL (7.8-10.44); Carbon Dioxide 24 mmol/L (22-29); Chloride 99 mmol/L (98-107); Estimated GFR 13; Glucose 344 mg/dL (70-105); Magnesium 1.8 mg/dL (1.6-2.6); Phosphorus 3.7 mg/dL (2.3-4.7); Potassium 3.5 mmol/L (3.5-5.1); Sodium 133 mmol/L (136-145)
[2022-01-12] MEDS ORDERED: Potassium Chloride 20 MEQ TAB PO SCH (07:45)
[2022-01-12] MEDS ORDERED: cloNIDine 0.2mg/24 Hour PATCH TD SCH (09:00)
[2022-01-12] MEDS ORDERED: Metoprolol Tartrate 50 MG TAB PO SCH (09:00)
[2022-01-12] MEDS: NIFEdipine XL 90 MG TAB PO SCH (09:01)
[2022-01-12] MEDS: Heparin 5,000 UNITS/ML VIAL SC SCH ×3 (09:03→20:33)
[2022-01-12] MEDS: Insulin Glargine 30 UNITS/0.3 ML VIAL SC SCH (09:03)
[2022-01-12] MEDS ORDERED: Dextrose 50% Abboject 50 ML SYRINGE SLOW IVP PRN (16:37)
[2022-01-12] MEDS ORDERED: Insulin Regular 300 UNITS/3 ML VIAL SC PRN ×2 (16:37)
[2022-01-12] MEDS ORDERED: Dextrose 5% in Water 1,000 ML IV PRN ×2 (16:37→16:45)
[2022-01-12] MEDS ORDERED: Dextrose 50% Abboject 50 ML SYRINGE IVP PRN (16:45)
[2022-01-12] MEDS: Acetaminophen 325 MG TAB PO PRN (18:01)
[2022-01-12] MEDS ORDERED: Labetalol HCl 100 MG/20 ML VIAL SLOW IVP PRN (18:36)
[2022-01-13 06:19] LABS: Band 1 % (5-11); Eosinophils 2 % (0-10); Hemoglobin 13.3 g/dL (12.0-16.0); Lymphocytes 31 % (21-51); MDiff Complete? YES; Mean Corpuscular HGB CONC 32.1 g/dL (32.0-36.0); Mean Corpuscular Hemoglobin 29.3 pg (27.0-31.0); Mean Corpuscular Volume 91.5 fL (78.0-98.0); Mean Platelet Volume 9.5 fL (7.4-10.4); Monocytes 7 % (0-10); Neutrophil 59 % (42-75); Platelet Count 192 thou/uL (130-400); RBC Distribution Width 14.1 % (11.5-14.5); Red Blood Cell (RBC) Count 4.52 mill/uL (4.20-5.40); White Blood Cell (WBC) Count 5.8 thou/uL (4.8-10.8)
[2022-01-13 06:25] LABS: Anion Gap 12 mmol/L (10-20); BUN (Urea Nitrogen) 15 mg/dL (7.0-18.7); Calc. Creatinine Clearance 15 mL/min (70-130); Calcium 8.9 mg/dL (7.8-10.44); Carbon Dioxide 28 mmol/L (22-29); Chloride 102 mmol/L (98-107); Estimated GFR 16; Glucose 197 mg/dL (70-105); Sodium 138 mmol/L (136-145)
[2022-01-13] MEDS: NIFEdipine XL 90 MG TAB PO SCH (08:15)
[2022-01-13 08:33] VITALS: TEMP 98.5
[2022-01-13] MEDS ORDERED: Insulin Glargine 30 UNITS/0.3 ML VIAL SC SCH (09:00)
[2022-01-13] MEDS ORDERED: Heparin 5,000 UNITS/ML VIAL SC SCH (09:00)
[2022-01-13] MEDS ORDERED: Metoprolol Tartrate 25 MG TAB PO SCH (09:00)
[2022-01-13 09:21] VITALS: BP 117/72
== END 2022-01-13 14:08 | disposition home or self-care (01) | DRG 77 ==
LOC: ERS 18:50 → IMCU/EMU 21:25 → T4-A 01-12 15:37
PROVIDERS: ADMIT Hospitalist; ATTEND Internal Medicine
DX: I67.4 Hypertensive encephalopathy (principal); E10.10 Type 1 diabetes mellitus with ketoacidosis without coma; G93.41 Metabolic encephalopathy; N18.6 End stage renal disease; I16.1 Hypertensive emergency; E10.65 Type 1 diabetes mellitus with hyperglycemia; Z20.822 Contact with and (suspected) exposure to COVID-19; E10.22 Type 1 diabetes mellitus with diabetic chronic kidney disease; K21.9 Gastro-esophageal reflux disease without esophagitis; I16.0 Hypertensive urgency; I10 Essential (primary) hypertension; E87.6 Hypokalemia; G93.89 Other specified disorders of brain; Z99.2 Dependence on renal dialysis; Z88.0 Allergy status to penicillin; Z88.8 Allergy status to other drugs, medicaments and biological substances
CPT/HCPCS: 36415; 36416; 70450; 71045; 80048; 80053; 80306; 80307; 81003; 81015; 82010; 82805; 82947; 83690; 83735; 83930; 84100; 84484; 84703; 85025; 86706; 87340; 90935; 93005; 95712; 95819; 95957; 96361; 96365; 96368; 96375; 96376; G0257; J0360; J1610; J1644; J1815; J2060; J3480; J7042; J7999

== ENCOUNTER 2022-01-24 23:38 | Inpatient (IN) | payer MEDICARE, OTHER ==
[2022-01-24] MEDS ORDERED: hydrALAZINE 20 MG/ML VIAL ONE (23:50)
[2022-01-25 00:17] LABS: #Basophils 0.1 thou/uL (0.0-0.2); #Eosinphils 0.2 thou/uL (0.0-0.7); #Lymphocytes 1.2 thou/uL (1.20-3.40); #Monocytes 0.2 thou/uL (0.11-0.59); #Neutrophils 4.2 thou/uL (1.40-6.50); %Basophils 1.1 % (0.0-1.0); %Eosinophils 3.3 % (0.0-10.0); %Lymphocytes 20.5 % (21.0-51.0); %Monocytes 3.9 % (0.0-10.0); %Neutrophils 71.1 % (42.0-75.0); Hemoglobin 12.7 g/dL (12.0-16.0); Mean Corpuscular HGB CONC 31.5 g/dL (32.0-36.0); Mean Corpuscular Hemoglobin 28.2 pg (27.0-31.0); Mean Corpuscular Volume 89.5 fL (78.0-98.0); Mean Platelet Volume 9.7 fL (7.4-10.4); Platelet Count 158 thou/uL (130-400); Red Blood Cell (RBC) Count 4.49 mill/uL (4.20-5.40); White Blood Cell (WBC) Count 5.9 thou/uL (4.8-10.8)
[2022-01-25 00:22] LABS: Actual Bicarbonate (HCO3v) 23 mEq/L (22-28); Analyzer IN Cardio ER; Base Excess -2.7 mEq/L (-2.0 to +3.0); Calcium, Ionized (venous) 1.06 mmol/L (1.16-1.32); Chloride (VBG) 91 mmol/L (98-106); Hemoglobin (Hb) 13.2 g/dL (11.7-15.5); Potassium (VBG) 4.12 mmol/L (3.70-5.30); Sodium 123.8 mmol/L (133-146); pH (venous) 7.34 (7.32-7.43)
[2022-01-25 00:53] LABS: BHCG - Serum Negative (NEGATIVE); Pregs Control Background? CLEAR/WHITE (CLR/WHITE); Pregs Control Bar Appear? YES (CONTROL BAR)
[2022-01-25 01:07] LABS: Acetaminophen Less than 10.0 mcg/mL (10.0-30.0); Alcohol Less than 10 mg/dL (Less than 10); Salicylate Less than 8.0 mg/dL (15.0-30.0)
[2022-01-25 01:08] LABS: ALT (SGPT) 12 U/L (8-55); AST (SGOT) 17 U/L (5-34); Albumin 3.4 g/dL (3.5-5.0); Alkaline Phosphatase 109 U/L (40-110); Anion Gap 17 mmol/L (10-20); BUN (Urea Nitrogen) 34 mg/dL (7.0-18.7); Bilirubin, Total 0.4 mg/dL (0.2-1.2); Calc. Creatinine Clearance 0 mL/min (70-130); Calcium 9.1 mg/dL (7.8-10.44); Carbon Dioxide 24 mmol/L (22-29); Chloride 89 mmol/L (98-107); Estimated GFR 7; Globulin 3.5 g/dL (2.4-3.5); Potassium 4.2 mmol/L (3.5-5.1); Protein, Total 6.9 g/dL (6.0-8.3); Sodium 126 mmol/L (136-145)
[2022-01-25 01:17] LABS: Glucose 731 mg/dL (70-105)
[2022-01-25] MEDS ORDERED: Insulin Regular 300 UNITS/3 ML VIAL ONE (01:30)
[2022-01-25 01:44] LABS: Amphetamine Not Detected (NotDetected); Barbiturates Screen Not Detected (NotDetected); Benzodiazepine Screen Not Detected (NotDetected); Cocaine Metabolite Screen Not Detected (NotDetected); Methadone Not Detected (NotDetected); Methamphetamine Not Detected (NotDetected); Opiate Screen Not Detected (NotDetected); Oxycodone Screen Not Detected (NotDetected); Phencyclidine (PCP) Not Detected (NotDetected); THC/Cannabinoid Screen Not Detected (NotDetected); Tricyclic Screen Not Detected (NotDetected)
[2022-01-25 01:48] LABS: Bacteria/HPF 1+ HPF (None Seen); Bilirubin Negative (Negative); Blood, Urine 1+ (Negative); Clarity Clear (Clear); Glucose, Urine (Dipstick) Greater than 1000 mg/dL (Negative); Ketone, Urine 10 mg/dL (Negative); Leukocyte Negative Leu/uL (Negative); Nitrite Negative (Negative); Protein, Urine (Dipstick) 600 mg/dL (Neg-Trace); RBC/HPF 0-3 HPF (0-3); Specific Gravity, Urine 1.018 (1.002-1.036); Squamous Epithelial 0-3 HPF (0-3); Urobilinogen Normal mg/dL (Less than 2)
[2022-01-25] MEDS ORDERED: Albuterol Sulfate 1.25 MG/3 ML NEB ONE (04:05)
[2022-01-25] MEDS ORDERED: HumaLOG 300 UNITS/3 ML VIAL SC PRN (06:33)
[2022-01-25] MEDS ORDERED: Dextrose 5% in Water 1,000 ML IV PRN ×2 (06:33→09:05)
[2022-01-25] MEDS ORDERED: Dextrose 50% Abboject 50 ML SYRINGE SLOW IVP PRN ×2 (06:33→09:05)
[2022-01-25] MEDS ORDERED: hydrALAZINE 20 MG/ML VIAL SLOW IVP PRN ×2 (06:36→20:17)
[2022-01-25] MEDS ORDERED: levETIRAcetam 500 MG/5 ML VIAL ONE (06:54)
[2022-01-25] MEDS ORDERED: HumaLOG 300 UNITS/3 ML VIAL ONE (06:54)
[2022-01-25] MEDS ORDERED: hydrALAZINE 20 MG/ML VIAL ONE (06:54)
[2022-01-25 08:30] LABS: ALT (SGPT) 9 U/L (8-55); AST (SGOT) 12 U/L (5-34); Albumin 2.8 g/dL (3.5-5.0); Alkaline Phosphatase 95 U/L (40-110); Anion Gap 14 mmol/L (10-20); BUN (Urea Nitrogen) 33 mg/dL (7.0-18.7); Bilirubin, Total 0.3 mg/dL (0.2-1.2); Calc. Creatinine Clearance 0 mL/min (70-130); Calcium 8.7 mg/dL (7.8-10.44); Carbon Dioxide 22 mmol/L (22-29); Chloride 98 mmol/L (98-107); Estimated GFR 8; Glucose 535 mg/dL (70-105); Potassium 3.2 mmol/L (3.5-5.1); Protein, Total 5.8 g/dL (6.0-8.3); Sodium 131 mmol/L (136-145)
[2022-01-25] MEDS ORDERED: Insulin Glargine 30 UNITS/0.3 ML VIAL SC SCH ×4 (09:00→13:15)
[2022-01-25] MEDS ORDERED: Ondansetron ODT 4 MG TAB PO PRN (09:12)
[2022-01-25] MEDS ORDERED: Potassium Chloride 20 MEQ TAB PO SCH (09:45)
[2022-01-25] MEDS: Sodium Chloride 0.9% 1,000 ML IV SCH ×2 (10:26→17:42)
[2022-01-25] MEDS ORDERED: Metoprolol Tartrate 25 MG TAB PO SCH (10:30)
[2022-01-25] MEDS ORDERED: Iopamidol 370 76% 100 ML VIAL ONE (12:09)
[2022-01-25 12:36] VITALS: BMI 18.7
[2022-01-25 12:43] LABS: Albumin 2.9 g/dL (3.5-5.0); Anion Gap 15 mmol/L (10-20); BUN (Urea Nitrogen) 34 mg/dL (7.0-18.7); BUN/Creatinine Ratio 5.02; Calc. Creatinine Clearance 9 mL/min (70-130); Calcium 8.8 mg/dL (7.8-10.44); Carbon Dioxide 22 mmol/L (22-29); Chloride 100 mmol/L (98-107); Estimated GFR 7; Glucose 346 mg/dL (70-105); Magnesium 1.9 mg/dL (1.6-2.6); Potassium 3.7 mmol/L (3.5-5.1); Sodium 133 mmol/L (136-145)
[2022-01-25] MEDS: Heparin 5,000 UNITS/ML VIAL SC SCH ×2 (13:58→21:31)
[2022-01-25] MEDS ORDERED: levETIRAcetam 500 MG TAB PO SCH (14:00)
[2022-01-25] MEDS ORDERED: Lorazepam 2 MG/ML VIAL SLOW IVP PRN (14:16)
[2022-01-25] MEDS ORDERED: Dextrose 10% in Water 250 ML IVPB SCH (17:15)
[2022-01-25] MEDS ORDERED: Aspirin 81 mg Enteric Coated Tablet PO SCH (17:30)
[2022-01-25] MEDS ORDERED: levETIRAcetam 500 MG/5 ML VIAL SLOW IVP SCH (20:00)
[2022-01-25] MEDS: Metoprolol Tartrate 25 MG TAB PO SCH (21:31)
[2022-01-25] MEDS: Atorvastatin Calcium 40 MG TAB PO SCH (21:31)
[2022-01-25] MEDS: levETIRAcetam 500 MG TAB PO SCH (21:31)
[2022-01-25 22:13] LABS: Hemoglobin A1c Greater than 14.0 % (4.0-6.0)
[2022-01-26] MEDS: Sodium Chloride 0.9% 1,000 ML IV SCH (05:54)
[2022-01-26 06:04] LABS: Hemoglobin 11.4 g/dL (12.0-16.0); Mean Corpuscular HGB CONC 30.9 g/dL (32.0-36.0); Mean Corpuscular Hemoglobin 28.1 pg (27.0-31.0); Mean Corpuscular Volume 90.9 fL (78.0-98.0); Mean Platelet Volume 9.2 fL (7.4-10.4); Platelet Count 184 thou/uL (130-400); RBC Distribution Width 14.2 % (11.5-14.5); Red Blood Cell (RBC) Count 4.06 mill/uL (4.20-5.40); White Blood Cell (WBC) Count 7.6 thou/uL (4.8-10.8)
[2022-01-26 06:27] LABS: ALT (SGPT) 13 U/L (8-55); AST (SGOT) 19 U/L (5-34); Albumin 2.7 g/dL (3.5-5.0); Alkaline Phosphatase 88 U/L (40-110); Anion Gap 16 mmol/L (10-20); BUN (Urea Nitrogen) 36 mg/dL (7.0-18.7); Bilirubin, Total 0.3 mg/dL (0.2-1.2); Calc. Creatinine Clearance 9 mL/min (70-130); Calcium 8.4 mg/dL (7.8-10.44); Carbon Dioxide 16 mmol/L (22-29); Cardiac Risk 3.4 (Less than 4.5); Chloride 105 mmol/L (98-107); Cholesterol 220 mg/dl (< 200 Desired); Estimated GFR 7; Glucose 128 mg/dL (70-105); HDL Cholesterol 65 mg/dL (>60 Neg Risk); LDL Cholesterol, Calculated 148 mg/dL; Magnesium 1.8 mg/dL (1.6-2.6); Potassium 4.3 mmol/L (3.5-5.1); Protein, Total 5.7 g/dL (6.0-8.3); Sodium 133 mmol/L (136-145); Triglycerides 36 mg/dL (Less than 150)
[2022-01-26 06:28] LABS: Band 1 % (5-11); Eosinophils 6 % (0-10); Lymphocytes 32 % (21-51); MDiff Complete? YES; Monocytes 6 % (0-10); Neutrophil 55 % (42-75)
[2022-01-26] MEDS: levETIRAcetam 500 MG TAB PO SCH ×2 (08:38→22:37)
[2022-01-26] MEDS: Metoprolol Tartrate 25 MG TAB PO SCH ×2 (08:38→22:37)
[2022-01-26] MEDS: Aspirin 81 mg Enteric Coated Tablet PO SCH (08:39)
[2022-01-26] MEDS: Heparin 5,000 UNITS/ML VIAL SC SCH ×3 (08:39→22:37)
[2022-01-26] MEDS ORDERED: NIFEdipine XL 90 MG TAB PO SCH (09:00)
[2022-01-26] MEDS ORDERED: Insulin Glargine 30 UNITS/0.3 ML VIAL SC SCH ×4 (09:00→21:00)
[2022-01-26 10:19] LABS: INR-International Normal Ratio 0.9; PTT 38.1 sec (22.9-36.1); Prothrombin Time 12.7 sec (12.0-14.7)
[2022-01-26 10:21] LABS: D-Dimer Test 2.12 *mcg/mL (0.27-0.43)
[2022-01-26] MEDS ORDERED: NIFEdipine XL 30 MG TAB PO SCH (21:00)
[2022-01-26] MEDS: Atorvastatin Calcium 40 MG TAB PO SCH (22:37)
[2022-01-26] MEDS: HumaLOG 300 UNITS/3 ML VIAL SC PRN (22:38)
[2022-01-27] MEDS: HumaLOG 300 UNITS/3 ML VIAL SC PRN ×5 (00:34→20:06)
[2022-01-27 05:41] LABS: ALT (SGPT) 10 U/L (8-55); AST (SGOT) 13 U/L (5-34); Albumin 2.5 g/dL (3.5-5.0); Alkaline Phosphatase 81 U/L (40-110); Anion Gap 10 mmol/L (10-20); BUN (Urea Nitrogen) 20 mg/dL (7.0-18.7); Bilirubin, Total 0.3 mg/dL (0.2-1.2); Calc. Creatinine Clearance 12 mL/min (70-130); Calcium 8.2 mg/dL (7.8-10.44); Carbon Dioxide 29 mmol/L (22-29); Chloride 99 mmol/L (98-107); Estimated GFR 10; Globulin 2.6 g/dL (2.4-3.5); Glucose 181 mg/dL (70-105); Potassium 4.2 mmol/L (3.5-5.1); Protein, Total 5.1 g/dL (6.0-8.3); Sodium 134 mmol/L (136-145)
[2022-01-27 06:49] LABS: Eosinophils 6 % (0-10); Hemoglobin 10.5 g/dL (12.0-16.0); Lymphocytes 27 % (21-51); MDiff Complete? YES; Mean Corpuscular HGB CONC 30.7 g/dL (32.0-36.0); Mean Corpuscular Hemoglobin 27.6 pg (27.0-31.0); Monocytes 1 % (0-10); Neutrophil 66 % (42-75); Platelet Count 183 thou/uL (130-400); RBC Distribution Width 14.4 % (11.5-14.5); Red Blood Cell (RBC) Count 3.78 mill/uL (4.20-5.40); White Blood Cell (WBC) Count 6.6 thou/uL (4.8-10.8)
[2022-01-27] MEDS: NIFEdipine XL 60 MG TAB PO SCH ×2 (08:52→20:05)
[2022-01-27] MEDS: Heparin 5,000 UNITS/ML VIAL SC SCH ×3 (08:52→20:05)
[2022-01-27] MEDS: Metoprolol Tartrate 25 MG TAB PO SCH ×2 (08:53→20:05)
[2022-01-27] MEDS: levETIRAcetam 500 MG TAB PO SCH ×2 (08:53→20:05)
[2022-01-27] MEDS: Aspirin 81 mg Enteric Coated Tablet PO SCH (08:53)
[2022-01-27 13:18] LABS: Cardiolipin IgG Ab 1.2 GPL-U/mL (<10 Negative); EliA APS New Method **** NEW METHOD ****
[2022-01-27] MEDS: Atorvastatin Calcium 40 MG TAB PO SCH (20:05)
[2022-01-27] MEDS ORDERED: Insulin Glargine 30 UNITS/0.3 ML VIAL SC SCH (21:00)
[2022-01-28] MEDS: HumaLOG 300 UNITS/3 ML VIAL SC PRN (06:05)
[2022-01-28] MEDS: levETIRAcetam 500 MG TAB PO SCH (08:42)
[2022-01-28] MEDS: Heparin 5,000 UNITS/ML VIAL SC SCH ×2 (08:42→14:47)
[2022-01-28] MEDS: Metoprolol Tartrate 25 MG TAB PO SCH (10:45)
[2022-01-28] MEDS: NIFEdipine XL 60 MG TAB PO SCH (10:45)
[2022-01-28] MEDS: Aspirin 81 mg Enteric Coated Tablet PO SCH (14:48)
[2022-01-28 15:05] VITALS: BP 178/99; TEMP 98.1
[2022-01-28 16:20] LABS: Protein C Activity 100 % (78-152)
[2022-01-28 16:28] LABS: Factor VIII Test 303.3 % ACTIVE (56-157)
[2022-01-28 16:38] LABS: HEX PHOS LA Tube 1 44.8 SEC; HEX PHOS LA Tube 2 42.7 SEC; Hexagonal Phospholipid Neut 2.1 SEC (0-8.0)
[2022-02-01 21:08] LABS: Activated Protein C Resistance 2.2 ratio (.)
== END 2022-01-28 16:36 | disposition home health service (06) | DRG 64 ==
LOC: ERS 23:38 → ERHOLD 01-25 03:38 → T4-B 01-25 08:38 → NEURO 01-25 19:06
PROVIDERS: ADMIT Student in an Organized Health Care Education/Training Program; ATTEND Internal Medicine
PROC: 5A1D70Z Performance of Urinary Filtration, Intermittent, Less than 6 Hours Per Day (ICD-10-PCS; principal; 2022-01-26)
DX: I63.9 Cerebral infarction, unspecified (principal); E10.10 Type 1 diabetes mellitus with ketoacidosis without coma; N18.6 End stage renal disease; I12.0 Hypertensive chronic kidney disease with stage 5 chronic kidney disease or end stage renal disease; N17.9 Acute kidney failure, unspecified; G93.49 Other encephalopathy; E10.22 Type 1 diabetes mellitus with diabetic chronic kidney disease; Z99.2 Dependence on renal dialysis; Z79.4 Long term (current) use of insulin; Z79.84 Long term (current) use of oral hypoglycemic drugs; Z88.0 Allergy status to penicillin; Z88.8 Allergy status to other drugs, medicaments and biological substances; Z86.73 Personal history of transient ischemic attack (TIA), and cerebral infarction without residual deficits; Z91.14 Patient's other noncompliance with medication regimen; R27.0 Ataxia, unspecified; I16.0 Hypertensive urgency; D63.1 Anemia in chronic kidney disease; G40.909 Epilepsy, unspecified, not intractable, without status epilepticus; E87.6 Hypokalemia; Z20.822 Contact with and (suspected) exposure to COVID-19; E10.40 Type 1 diabetes mellitus with diabetic neuropathy, unspecified
CPT/HCPCS: 36415; 36416; 70450; 70496; 70498; 70551; 71045; 80053; 80061; 80306; 80307; 81003; 81015; 82010; 82805; 83036; 83090; 83735; 83880; 83930; 84100; 84443; 84484; 84703; 85025; 85240; 85300; 85303; 85305; 85307; 85379; 85598; 85610; 85730; 86147; 90935; 93005; 93306; 95712; 95819; 95957; 96374; 96375; 96376; G0257; J0360; J1644; J1815; J1953; J7050; Q9967; U0003; U0005

== ENCOUNTER 2022-04-01 18:40 | Inpatient (IN) | payer OTHER ==
[2022-04-01 20:02] LABS: Hemoglobin 10.3 g/dL (12.0-16.0); Mean Corpuscular HGB CONC 30.5 g/dL (32.0-36.0); Mean Corpuscular Hemoglobin 28.2 pg (27.0-31.0); Mean Corpuscular Volume 92.5 fl (78.0-98.0); Mean Platelet Volume 8.5 fL (7.4-10.4); Platelet Count 257 10x3/uL (130-400); RBC Distribution Width 17.4 % (11.5-14.5); Red Blood Cell (RBC) Count 3.66 mill/uL (4.20-5.40); White Blood Cell (WBC) Count 12.9 10x3/uL (4.8-10.8)
[2022-04-01 20:14] LABS: Magnesium 2.1 mg/dL (1.6-2.6)
[2022-04-01] MEDS ORDERED: Cefepime 2 GM VIAL ONE (20:14)
[2022-04-01 20:15] LABS: BHCG - Serum Negative (NEGATIVE); Pregs Control Background? CLEAR/WHITE (CLR/WHITE); Pregs Control Bar Appear? YES (CONTROL BAR)
[2022-04-01 20:17] LABS: Actual Bicarbonate (HCO3v) 23 mEq/L (22-28); Analyzer IN Cardio ER; Base Excess -1.3 mEq/L (-2.0 to +3.0); Calcium, Ionized (venous) 1.06 mmol/L (1.16-1.32); Chloride (VBG) 90 mmol/L (98-106); Hemoglobin (Hb) 8.4 g/dL (11.7-15.5); Potassium (VBG) 3.64 mmol/L (3.70-5.30); pH (venous) 7.43 (7.32-7.43)
[2022-04-01 20:19] LABS: ALT (SGPT) Less than 7 U/L (8-55); AST (SGOT) 5 U/L (5-34); Albumin 3.1 g/dL (3.5-5.0); Alkaline Phosphatase 94 U/L (40-110); Anion Gap 23 mmol/L (10-20); BUN (Urea Nitrogen) 48 mg/dL (7.0-18.7); Bilirubin, Total 0.7 mg/dL (0.2-1.2); Calc. Creatinine Clearance 0 mL/min (70-130); Calcium 9.2 mg/dL (7.8-10.44); Carbon Dioxide 23 mmol/L (22-29); Chloride 91 mmol/L (98-107); Estimated GFR 6; Globulin 4.1 g/dL (2.4-3.5); Phosphorus 6.7 mg/dL (2.3-4.7); Potassium 3.7 mmol/L (3.5-5.1); Protein, Total 7.2 g/dL (6.0-8.3); Sodium 133 mmol/L (136-145)
[2022-04-01 20:24] LABS: Band 11 % (5-11); Lymphocytes 8 % (21-51); MDiff Complete? YES; Monocytes 5 % (0-10); Neutrophil 76 % (42-75)
[2022-04-01 20:25] LABS: Glucose 616 mg/dL (70-105)
[2022-04-01] MEDS ORDERED: Potassium Chloride 20 MEQ TAB ONE (20:49)
[2022-04-01] MEDS ORDERED: Ondansetron PF 4 MG/2 ML Vial IVP PRN (22:27)
[2022-04-01] MEDS ORDERED: Dextrose 5 %-0.45 % NaCl 1,000 ML IV PRN (22:28)
[2022-04-01] MEDS ORDERED: Sodium Chloride 0.9% 1,000 ML IV PRN ×4 (22:28)
[2022-04-01] MEDS ORDERED: NS 0.9% w/ 20 MEQ KCL 1,000 ML IV PRN ×2 (22:28)
[2022-04-01] MEDS ORDERED: D5 1/2 NS w/20 mEq KCL 1,000 ML IV PRN (22:28)
[2022-04-01] MEDS ORDERED: Electrolyte Replacement Protocol 1 EACH IVPB PRN (22:28)
[2022-04-01] MEDS ORDERED: HUMULIN R 100 UNITS in Sodium Chloride 0.9% 100 ML IVPB SCH (22:30)
[2022-04-01] MEDS ORDERED: levETIRAcetam 500 MG TAB PO SCH (22:45)
[2022-04-01] MEDS ORDERED: NIFEdipine XL 60 MG TAB PO SCH (23:00)
[2022-04-01] MEDS ORDERED: Metoprolol Tartrate 25 MG TAB PO SCH (23:00)
[2022-04-01] MEDS ORDERED: Vancomycin 1 GM in Premix Bag 1 BAG IVPB SCH (23:15)
[2022-04-01] MEDS ORDERED: Vancomycin Hemodialysis Sliding Scale FS SCH (23:15)
[2022-04-01 23:28] LABS: Anion Gap 19 mmol/L (10-20); BUN (Urea Nitrogen) 48 mg/dL (7.0-18.7); Calc. Creatinine Clearance 0 mL/min (70-130); Carbon Dioxide 25 mmol/L (22-29); Chloride 93 mmol/L (98-107); Estimated GFR 6; Potassium 3.8 mmol/L (3.5-5.1); Sodium 133 mmol/L (136-145)
[2022-04-01 23:34] LABS: Glucose 456 mg/dL (70-105)
[2022-04-02 02:32] LABS: #Eosinphils 0.2 thou/uL (0.0-0.7); #Lymphocytes 1.9 thou/uL (1.20-3.40); #Monocytes 1.3 thou/uL (0.11-0.59); #Neutrophils 10.7 thou/uL (1.40-6.50); %Basophils 0.2 % (0.0-1.0); %Eosinophils 1.7 % (0.0-10.0); %Lymphocytes 13.7 % (21.0-51.0); %Monocytes 8.9 % (0.0-10.0); %Neutrophils 75.4 % (42.0-75.0); Hemoglobin 10.7 g/dL (12.0-16.0); Mean Corpuscular HGB CONC 32.2 g/dL (32.0-36.0); Mean Corpuscular Hemoglobin 29.5 pg (27.0-31.0); Mean Corpuscular Volume 91.6 fl (78.0-98.0); Platelet Count 266 10x3/uL (130-400); RBC Distribution Width 17.4 % (11.5-14.5); Red Blood Cell (RBC) Count 3.63 mill/uL (4.20-5.40); White Blood Cell (WBC) Count 14.2 10x3/uL (4.8-10.8)
[2022-04-02 02:51] LABS: Anion Gap 20 mmol/L (10-20); BUN (Urea Nitrogen) 51 mg/dL (7.0-18.7); Calc. Creatinine Clearance 6 mL/min (70-130); Calcium 9.4 mg/dL (7.8-10.44); Carbon Dioxide 24 mmol/L (22-29); Chloride 97 mmol/L (98-107); Estimated GFR 5; Glucose 224 mg/dL (70-105); Potassium 3.8 mmol/L (3.5-5.1); Sodium 137 mmol/L (136-145)
[2022-04-02] MEDS: Acetaminophen 325 MG TAB PO PRN (02:52)
[2022-04-02] MEDS ORDERED: Dextrose 5% in Water 1,000 ML IV PRN (03:22)
[2022-04-02] MEDS ORDERED: Insulin Glargine 30 UNITS/0.3 ML VIAL SC SCH (03:30)
[2022-04-02 07:49] LABS: Anion Gap 17 mmol/L (10-20); BUN (Urea Nitrogen) 51 mg/dL (7.0-18.7); Calc. Creatinine Clearance 6 mL/min (70-130); Calcium 9.1 mg/dL (7.8-10.44); Carbon Dioxide 26 mmol/L (22-29); Chloride 99 mmol/L (98-107); Estimated GFR 5; Glucose 99 mg/dL (70-105); Potassium 3.8 mmol/L (3.5-5.1); Sodium 138 mmol/L (136-145)
[2022-04-02] MEDS: levETIRAcetam 500 MG TAB PO SCH ×2 (10:28→20:21)
[2022-04-02] MEDS: Heparin 5,000 UNITS/ML VIAL SC SCH ×2 (10:28→20:21)
[2022-04-02] MEDS: metroNIDAZOLE 500 MG in Premix Bag 1 BAG IVPB SCH ×2 (10:28→21:12)
[2022-04-02] MEDS: Metoprolol Tartrate 50 MG TAB PO SCH ×2 (10:48→20:21)
[2022-04-02] MEDS: NIFEdipine XL 60 MG TAB PO SCH ×2 (10:50→21:11)
[2022-04-02] MEDS: Cefepime 0.5 GM, Admixture Fee 1 EACH in Sodium Chloride 0.9% 100 ML IVPB SCH (19:59)
[2022-04-02] MEDS: Amitriptyline HCl 25 MG TAB PO SCH (20:21)
[2022-04-02] MEDS: traZODone HCl 50 MG TAB PO SCH (20:21)
[2022-04-02] MEDS: Atorvastatin Calcium 40 MG TAB PO SCH (20:21)
[2022-04-02] MEDS: HYDROcodone/Acetaminophen 5/325 mg Tablet PO PRN (23:43)
[2022-04-03 00:02] LABS: SARS-CoV-2 NAA Rapid Test Not Detected (NotDetected)
[2022-04-03 03:50] LABS: Hemoglobin 8.9 g/dL (12.0-16.0); Mean Corpuscular HGB CONC 31.7 g/dL (32.0-36.0); Mean Corpuscular Hemoglobin 29.6 pg (27.0-31.0); Mean Corpuscular Volume 93.5 fl (78.0-98.0); Mean Platelet Volume 7.8 fL (7.4-10.4); Platelet Count 289 10x3/uL (130-400); RBC Distribution Width 17.3 % (11.5-14.5)
[2022-04-03 04:09] LABS: Anion Gap 17 mmol/L (10-20); BUN (Urea Nitrogen) 56 mg/dL (7.0-18.7); Calc. Creatinine Clearance 6 mL/min (70-130); Calcium 8.9 mg/dL (7.8-10.44); Carbon Dioxide 24 mmol/L (22-29); Chloride 100 mmol/L (98-107); Estimated GFR 5; Sodium 137 mmol/L (136-145)
[2022-04-03 04:16] LABS: Glucose 41 mg/dL (70-105)
[2022-04-03] MEDS: Dextrose 50% Abboject 50 ML SYRINGE SLOW IVP PRN (04:38)
[2022-04-03 07:12] LABS: Vancomycin, Random 15.1 ug/mL (See Comment)
[2022-04-03] MEDS ORDERED: Insulin Glargine 30 UNITS/0.3 ML VIAL SC SCH (09:00)
[2022-04-03] MEDS: metroNIDAZOLE 500 MG in Premix Bag 1 BAG IVPB SCH ×2 (09:39→20:57)
[2022-04-03] MEDS: HumaLOG 300 UNITS/3 ML VIAL SC PRN ×2 (09:40→22:48)
[2022-04-03] MEDS: levETIRAcetam 500 MG TAB PO SCH ×2 (09:40→20:54)
[2022-04-03] MEDS: Heparin 5,000 UNITS/ML VIAL SC SCH ×2 (09:40→20:54)
[2022-04-03] MEDS: Folic Acid 1 MG TAB PO SCH (09:40)
[2022-04-03] MEDS: Aspirin 81 mg Enteric Coated Tablet PO SCH (09:40)
[2022-04-03] MEDS ORDERED: Heparin 10,000 UNITS/ 10 ML VIAL ONE (10:40)
[2022-04-03] MEDS: HYDROcodone/Acetaminophen 5/325 mg Tablet PO PRN ×2 (11:17→20:53)
[2022-04-03] MEDS: Metoprolol Tartrate 50 MG TAB PO SCH ×2 (15:59→20:54)
[2022-04-03] MEDS: NIFEdipine XL 60 MG TAB PO SCH ×2 (16:00→20:52)
[2022-04-03] MEDS: Acetaminophen 325 MG TAB PO PRN ×2 (16:01→21:37)
[2022-04-03] MEDS ORDERED: EPOETIN ALFA-EPBX (ESRD) 10,000 UNIT/ML VIAL FS SCH (16:45)
[2022-04-03] MEDS ORDERED: Vancomycin HCl 250 MG in Sodium Chloride 0.9% 100 ML IVPB SCH (17:00)
[2022-04-03] MEDS ORDERED: Vancomycin HCl 500 MG in Sodium Chloride 0.9% 100 ML IVPB SCH (17:00)
[2022-04-03] MEDS: Atorvastatin Calcium 40 MG TAB PO SCH (20:54)
[2022-04-03] MEDS: Amitriptyline HCl 25 MG TAB PO SCH (20:54)
[2022-04-03] MEDS: traZODone HCl 50 MG TAB PO SCH (20:57)
[2022-04-03] MEDS: Cefepime 0.5 GM, Admixture Fee 1 EACH in Sodium Chloride 0.9% 100 ML IVPB SCH (21:38)
[2022-04-04] MEDS: Acetaminophen 325 MG TAB PO PRN ×3 (05:23→17:15)
[2022-04-04] MEDS: HumaLOG 300 UNITS/3 ML VIAL SC PRN (05:24)
[2022-04-04 07:20] LABS: Anion Gap 18 mmol/L (10-20); BUN (Urea Nitrogen) 27 mg/dL (7.0-18.7); CRP (Inflammatory) 21.15 mg/dL (= or < 0.5); Calc. Creatinine Clearance 9 mL/min (70-130); Calcium 8.5 mg/dL (7.8-10.44); Carbon Dioxide 21 mmol/L (22-29); Chloride 99 mmol/L (98-107); Estimated GFR 8; Glucose 260 mg/dL (70-105); Potassium 5.4 mmol/L (3.5-5.1); Sodium 133 mmol/L (136-145)
[2022-04-04] MEDS: metroNIDAZOLE 500 MG in Premix Bag 1 BAG IVPB SCH ×2 (09:04→21:34)
[2022-04-04] MEDS: Metoprolol Tartrate 50 MG TAB PO SCH ×2 (09:05→20:42)
[2022-04-04] MEDS: Aspirin 81 mg Enteric Coated Tablet PO SCH (09:05)
[2022-04-04] MEDS: Folic Acid 1 MG TAB PO SCH (09:05)
[2022-04-04] MEDS: levETIRAcetam 500 MG TAB PO SCH ×2 (09:05→20:42)
[2022-04-04] MEDS: Heparin 5,000 UNITS/ML VIAL SC SCH ×2 (09:06→20:42)
[2022-04-04] MEDS ORDERED: LOKELMA 10 GM PACKET PO SCH (09:15)
[2022-04-04] MEDS ORDERED: Insulin Glargine 30 UNITS/0.3 ML VIAL SC SCH (09:15)
[2022-04-04 09:28] LABS: #Eosinphils 0.3 thou/uL (0.0-0.7); #Lymphocytes 0.8 thou/uL (1.20-3.40); #Monocytes 0.8 thou/uL (0.11-0.59); #Neutrophils 6.4 thou/uL (1.40-6.50); %Basophils 0.1 % (0.0-1.0); %Eosinophils 3.5 % (0.0-10.0); %Lymphocytes 9.6 % (21.0-51.0); %Monocytes 9.1 % (0.0-10.0); %Neutrophils 77.7 % (42.0-75.0); Hemoglobin 9.3 g/dL (12.0-16.0); Mean Corpuscular HGB CONC 30.4 g/dL (32.0-36.0); Mean Corpuscular Hemoglobin 28.8 pg (27.0-31.0); Mean Corpuscular Volume 94.7 fl (78.0-98.0); Mean Platelet Volume 8.2 fL (7.4-10.4); Platelet Count 300 10x3/uL (130-400); RBC Distribution Width 17.8 % (11.5-14.5); Red Blood Cell (RBC) Count 3.23 mill/uL (4.20-5.40); White Blood Cell (WBC) Count 8.3 10x3/uL (4.8-10.8)
[2022-04-04] MEDS: NIFEdipine XL 30 MG TAB PO SCH ×2 (09:28→20:41)
[2022-04-04] MEDS ORDERED: Morphine 4 MG/ML VIAL SLOW IVP SCH (10:30)
[2022-04-04 19:32] LABS: Anion Gap 16 mmol/L (10-20); Carbon Dioxide 26 mmol/L (22-29); Chloride 99 mmol/L (98-107); Potassium 3.8 mmol/L (3.5-5.1); Sodium 137 mmol/L (136-145)
[2022-04-04] MEDS: Dextrose 50% Abboject 50 ML SYRINGE SLOW IVP PRN (20:31)
[2022-04-04] MEDS: Cefepime 0.5 GM, Admixture Fee 1 EACH in Sodium Chloride 0.9% 100 ML IVPB SCH (20:41)
[2022-04-04] MEDS: Amitriptyline HCl 25 MG TAB PO SCH (20:42)
[2022-04-04] MEDS: Atorvastatin Calcium 40 MG TAB PO SCH (20:42)
[2022-04-04] MEDS: traZODone HCl 50 MG TAB PO SCH (20:42)
[2022-04-05] MEDS: Acetaminophen 325 MG TAB PO PRN (02:28)
[2022-04-05] MEDS: HYDROcodone/Acetaminophen 5/325 mg Tablet PO PRN (06:22)
[2022-04-05] MEDS: HumaLOG 300 UNITS/3 ML VIAL SC PRN ×2 (06:23→13:30)
[2022-04-05 08:25] LABS: #Eosinphils 0.1 thou/uL (0.0-0.7); #Lymphocytes 0.9 thou/uL (1.20-3.40); #Monocytes 0.8 thou/uL (0.11-0.59); #Neutrophils 7.1 thou/uL (1.40-6.50); %Basophils 0.1 % (0.0-1.0); %Eosinophils 1.4 % (0.0-10.0); %Lymphocytes 9.8 % (21.0-51.0); %Monocytes 8.5 % (0.0-10.0); %Neutrophils 80.1 % (42.0-75.0); Hemoglobin 8.4 g/dL (12.0-16.0); Mean Corpuscular HGB CONC 30.8 g/dL (32.0-36.0); Mean Corpuscular Hemoglobin 29.1 pg (27.0-31.0); Mean Corpuscular Volume 94.5 fl (78.0-98.0); Mean Platelet Volume 8.2 fL (7.4-10.4); Platelet Count 299 10x3/uL (130-400); RBC Distribution Width 17.5 % (11.5-14.5); White Blood Cell (WBC) Count 8.9 10x3/uL (4.8-10.8)
[2022-04-05] MEDS ORDERED: Acetaminophen/Codeine 30-300mg Tablet PO SCH (08:30)
[2022-04-05 08:46] LABS: Anion Gap 17 mmol/L (10-20); BUN (Urea Nitrogen) 35 mg/dL (7.0-18.7); Calc. Creatinine Clearance 7 mL/min (70-130); Calcium 8.6 mg/dL (7.8-10.44); Carbon Dioxide 22 mmol/L (22-29); Chloride 96 mmol/L (98-107); Estimated GFR 6; Glucose 259 mg/dL (70-105); Sodium 131 mmol/L (136-145)
[2022-04-05] MEDS ORDERED: Insulin Glargine 30 UNITS/0.3 ML VIAL SC SCH (09:00)
[2022-04-05] MEDS: levETIRAcetam 500 MG TAB PO SCH ×2 (09:27→20:45)
[2022-04-05] MEDS: Insulin Glargine 30 UNITS/0.3 ML VIAL SC SCH (09:27)
[2022-04-05] MEDS: Folic Acid 1 MG TAB PO SCH ×2 (09:27→13:12)
[2022-04-05] MEDS: metroNIDAZOLE 500 MG in Premix Bag 1 BAG IVPB SCH ×2 (09:27→13:27)
[2022-04-05] MEDS: Metoprolol Tartrate 50 MG TAB PO SCH ×2 (09:27→20:44)
[2022-04-05] MEDS: Aspirin 81 mg Enteric Coated Tablet PO SCH ×2 (09:27→13:10)
[2022-04-05] MEDS: Heparin 5,000 UNITS/ML VIAL SC SCH ×3 (09:27→20:44)
[2022-04-05] MEDS: NIFEdipine XL 30 MG TAB PO SCH ×2 (09:27→20:44)
[2022-04-05 17:34] VITALS: BMI 17.6
[2022-04-05] MEDS: Cefepime 0.5 GM, Admixture Fee 1 EACH in Sodium Chloride 0.9% 100 ML IVPB SCH (20:43)
[2022-04-05] MEDS: Amitriptyline HCl 25 MG TAB PO SCH (20:44)
[2022-04-05] MEDS: Atorvastatin Calcium 40 MG TAB PO SCH (20:45)
[2022-04-05] MEDS: traZODone HCl 50 MG TAB PO SCH (21:36)
[2022-04-06] MEDS: metroNIDAZOLE 500 MG in Premix Bag 1 BAG IVPB SCH ×3 (00:56→14:05)
[2022-04-06 06:43] LABS: Hemoglobin 8.8 g/dL (12.0-16.0); Mean Corpuscular HGB CONC 29.9 g/dL (32.0-36.0); Mean Corpuscular Hemoglobin 28.2 pg (27.0-31.0); Mean Corpuscular Volume 94.1 fl (78.0-98.0); Platelet Count 375 10x3/uL (130-400); RBC Distribution Width 17.7 % (11.5-14.5); Red Blood Cell (RBC) Count 3.13 mill/uL (4.20-5.40); White Blood Cell (WBC) Count 9.4 10x3/uL (4.8-10.8)
[2022-04-06 07:29] LABS: Vancomycin, Random 16.3 ug/mL (See Comment)
[2022-04-06] MEDS: NIFEdipine XL 30 MG TAB PO SCH ×3 (07:41→20:27)
[2022-04-06] MEDS: levETIRAcetam 500 MG TAB PO SCH ×3 (07:42→20:27)
[2022-04-06] MEDS: Metoprolol Tartrate 50 MG TAB PO SCH ×4 (07:42→20:38)
[2022-04-06] MEDS: Insulin Glargine 30 UNITS/0.3 ML VIAL SC SCH (07:43)
[2022-04-06] MEDS: Folic Acid 1 MG TAB PO SCH (07:43)
[2022-04-06] MEDS: Heparin 5,000 UNITS/ML VIAL SC SCH ×2 (07:43→23:17)
[2022-04-06] MEDS: Aspirin 81 mg Enteric Coated Tablet PO SCH (07:43)
[2022-04-06 08:54] LABS: HBSAg Index 0.28 S/CO (0-0.99); Hep B Core Total Ab Non-Reactive (NonReactive); Hep B Core Total Index 0.18 S/CO (0-0.79); Hep B Surf Ag Non-Reactive S/CO (NonReactive); Hep C IgG Ab Non-Reactive (NonReactive); Hep C Index 0.06 S/CO (0-0.79)
[2022-04-06 09:03] LABS: HBSAB Concentration 429.64 mIU/mL; Hep B Surf AB Reactive (NonReactive)
[2022-04-06] MEDS: HYDROcodone/Acetaminophen 5/325 mg Tablet PO PRN (09:14)
[2022-04-06 09:40] LABS: Band 26 % (5-11); Eosinophils 2 % (0-10); Hypochromia SLIGHT = 6-15 cells (100X) (0-5/hpf); Lymphocytes 20 % (21-51); MDiff Complete? YES; Macrocytosis SLIGHT = 6-15 cells (100X) (0-5/hpf); Monocytes 3 % (0-10); Neutrophil 49 % (42-75); Platelet Morphology Comment Appears Adequate
[2022-04-06] MEDS ORDERED: Bupivacaine HCl 0.5%/Epinephrine 1:200,000/PF 30 ml Vial ONE (14:59)
[2022-04-06] MEDS ORDERED: Propofol 500 MG/50 ML VIAL ONE (15:06)
[2022-04-06] MEDS ORDERED: Ketamine 50 MG/ML (10ML VIAL) ONE (15:06)
[2022-04-06] MEDS ORDERED: PROPOFOL 200 MG/20 ML VIAL ONE (15:27)
[2022-04-06] MEDS ORDERED: traMADol HCl 50 MG TAB PO PRN (16:28)
[2022-04-06] MEDS ORDERED: Acetaminophen 500 MG TAB PO PRN (16:28)
[2022-04-06] MEDS ORDERED: Acetaminophen 500 MG TAB PO SCH (16:30)
[2022-04-06] MEDS ORDERED: Vancomycin HCl 500 MG in Sodium Chloride 0.9% 100 ML IVPB SCH (17:00)
[2022-04-06] MEDS ORDERED: EPOETIN ALFA-EPBX (ESRD) 10,000 UNIT/ML VIAL SC SCH (18:00)
[2022-04-06] MEDS: traZODone HCl 50 MG TAB PO SCH ×2 (20:26→20:52)
[2022-04-06] MEDS: Cefepime 0.5 GM, Admixture Fee 1 EACH in Sodium Chloride 0.9% 100 ML IVPB SCH (20:26)
[2022-04-06] MEDS: Atorvastatin Calcium 40 MG TAB PO SCH (20:26)
[2022-04-06] MEDS: Amitriptyline HCl 25 MG TAB PO SCH (20:26)
[2022-04-06] MEDS: HumaLOG 300 UNITS/3 ML VIAL SC PRN (20:53)
[2022-04-07] MEDS: metroNIDAZOLE 500 MG in Premix Bag 1 BAG IVPB SCH ×2 (01:22→13:25)
[2022-04-07 06:14] LABS: #Eosinphils 0.2 thou/uL (0.0-0.7); #Lymphocytes 1.9 thou/uL (1.20-3.40); #Neutrophils 5.5 thou/uL (1.40-6.50); %Eosinophils 2.1 % (0.0-10.0); %Lymphocytes 22.5 % (21.0-51.0); %Monocytes 11.7 % (0.0-10.0); %Neutrophils 63.8 % (42.0-75.0); Hemoglobin 7.5 g/dL (12.0-16.0); Mean Corpuscular HGB CONC 30.4 g/dL (32.0-36.0); Mean Corpuscular Hemoglobin 28.6 pg (27.0-31.0); Mean Platelet Volume 7.6 fL (7.4-10.4); Platelet Count 340 10x3/uL (130-400); RBC Distribution Width 17.6 % (11.5-14.5); Red Blood Cell (RBC) Count 2.62 mill/uL (4.20-5.40); White Blood Cell (WBC) Count 8.6 10x3/uL (4.8-10.8)
[2022-04-07] MEDS: HumaLOG 300 UNITS/3 ML VIAL SC PRN ×3 (06:21→17:04)
[2022-04-07 06:34] LABS: Albumin 2.4 g/dL (3.5-5.0); Anion Gap 18 mmol/L (10-20); BUN (Urea Nitrogen) 26 mg/dL (7.0-18.7); BUN/Creatinine Ratio 4.19; Calc. Creatinine Clearance 10 mL/min (70-130); Calcium 8.1 mg/dL (7.8-10.44); Carbon Dioxide 24 mmol/L (22-29); Chloride 101 mmol/L (98-107); Estimated GFR 8; Glucose 250 mg/dL (70-105); Iron 18 ug/dL (50-170); Iron Binding Capacity, Total 93 mcg/dL (265-497); Phosphorus 5.1 mg/dL (2.3-4.7); Potassium 4.2 mmol/L (3.5-5.1); Sodium 139 mmol/L (136-145)
[2022-04-07] MEDS: levETIRAcetam 500 MG TAB PO SCH ×2 (08:36→21:26)
[2022-04-07] MEDS: Folic Acid 1 MG TAB PO SCH (08:37)
[2022-04-07] MEDS: NIFEdipine XL 30 MG TAB PO SCH (08:37)
[2022-04-07] MEDS: Heparin 5,000 UNITS/ML VIAL SC SCH ×2 (08:37→21:26)
[2022-04-07] MEDS: Metoprolol Tartrate 50 MG TAB PO SCH ×2 (08:37→21:26)
[2022-04-07] MEDS: Aspirin 81 mg Enteric Coated Tablet PO SCH (08:37)
[2022-04-07] MEDS: Insulin Glargine 30 UNITS/0.3 ML VIAL SC SCH (08:37)
[2022-04-07] MEDS: Acetaminophen 325 MG TAB PO PRN (08:45)
[2022-04-07] MEDS ORDERED: Iron Sucrose Complex 200 MG in Sodium Chloride 0.9% 100 ML IVPB SCH (15:45)
[2022-04-07] MEDS: NIFEdipine XL 60 MG TAB PO SCH (21:25)
[2022-04-07] MEDS: Amitriptyline HCl 25 MG TAB PO SCH (21:26)
[2022-04-07] MEDS: Atorvastatin Calcium 40 MG TAB PO SCH (21:26)
[2022-04-07] MEDS: traZODone HCl 50 MG TAB PO SCH (21:26)
[2022-04-07] MEDS: Cefepime 0.5 GM, Admixture Fee 1 EACH in Sodium Chloride 0.9% 100 ML IVPB SCH (21:27)
[2022-04-08] MEDS: metroNIDAZOLE 500 MG in Premix Bag 1 BAG IVPB SCH ×2 (01:11→13:50)
[2022-04-08] MEDS: Heparin 5,000 UNITS/ML VIAL SC SCH ×2 (08:09→21:01)
[2022-04-08] MEDS: Folic Acid 1 MG TAB PO SCH (08:09)
[2022-04-08] MEDS: Aspirin 81 mg Enteric Coated Tablet PO SCH (08:09)
[2022-04-08] MEDS: Metoprolol Tartrate 50 MG TAB PO SCH ×2 (08:10→21:01)
[2022-04-08] MEDS: NIFEdipine XL 60 MG TAB PO SCH ×2 (08:10→21:01)
[2022-04-08] MEDS: levETIRAcetam 500 MG TAB PO SCH ×2 (08:11→21:01)
[2022-04-08] MEDS: Insulin Glargine 30 UNITS/0.3 ML VIAL SC SCH (08:11)
[2022-04-08 08:42] LABS: Hemoglobin 8.3 g/dL (12.0-16.0); Mean Corpuscular HGB CONC 30.3 g/dL (32.0-36.0); Mean Corpuscular Hemoglobin 28.5 pg (27.0-31.0); Mean Platelet Volume 7.1 fL (7.4-10.4); Platelet Count 332 10x3/uL (130-400); RBC Distribution Width 17.9 % (11.5-14.5); Red Blood Cell (RBC) Count 2.92 mill/uL (4.20-5.40); White Blood Cell (WBC) Count 9.3 10x3/uL (4.8-10.8)
[2022-04-08 08:57] LABS: Vancomycin, Random 18.6 ug/mL (See Comment)
[2022-04-08 09:04] LABS: Anion Gap 17 mmol/L (10-20); BUN (Urea Nitrogen) 29 mg/dL (7.0-18.7); Calc. Creatinine Clearance 8 mL/min (70-130); Carbon Dioxide 22 mmol/L (22-29); Chloride 101 mmol/L (98-107); Estimated GFR 7; Glucose 95 mg/dL (70-105); Potassium 3.6 mmol/L (3.5-5.1); Sodium 136 mmol/L (136-145)
[2022-04-08 09:05] LABS: Band 7 % (5-11); Eosinophils 3 % (0-10); Lymphocytes 18 % (21-51); MDiff Complete? YES; Metamyelocyte 2 % (0-0); Monocytes 3 % (0-10); Myelocyte 1 % (0-0); Neutrophil 65 % (42-75); Platelet Morphology Comment Appears Adequate; Polychromasia SLIGHT = 2-3 cells (100X) (0-2/hpf); Schistocytes SLIGHT = 2-5 cells (100X) (0-1/hpf)
[2022-04-08] MEDS ORDERED: Vancomycin HCl 500 MG in Sodium Chloride 0.9% 100 ML IVPB SCH (17:00)
[2022-04-08] MEDS ORDERED: Vancomycin HCl 250 MG in Sodium Chloride 0.9% 100 ML IVPB SCH (17:00)
[2022-04-08] MEDS: Cefepime 0.5 GM, Admixture Fee 1 EACH in Sodium Chloride 0.9% 100 ML IVPB SCH (20:38)
[2022-04-08] MEDS: Amitriptyline HCl 25 MG TAB PO SCH (21:01)
[2022-04-08] MEDS: Atorvastatin Calcium 40 MG TAB PO SCH (21:02)
[2022-04-08] MEDS: traZODone HCl 50 MG TAB PO SCH (21:02)
[2022-04-09] MEDS: metroNIDAZOLE 500 MG in Premix Bag 1 BAG IVPB SCH ×2 (00:51→12:28)
[2022-04-09] MEDS: NIFEdipine XL 60 MG TAB PO SCH (09:55)
[2022-04-09] MEDS: Metoprolol Tartrate 50 MG TAB PO SCH (09:56)
[2022-04-09] MEDS: Folic Acid 1 MG TAB PO SCH (09:56)
[2022-04-09] MEDS: levETIRAcetam 500 MG TAB PO SCH (09:56)
[2022-04-09] MEDS: Heparin 5,000 UNITS/ML VIAL SC SCH (09:56)
[2022-04-09] MEDS: Aspirin 81 mg Enteric Coated Tablet PO SCH (09:56)
[2022-04-09] MEDS: Insulin Glargine 30 UNITS/0.3 ML VIAL SC SCH (09:56)
[2022-04-09 18:40] VITALS: BP 139/82; TEMP 97.8
== END 2022-04-09 17:37 | disposition home or self-care (01) | DRG 853 ==
LOC: ERS 18:40 → IMCU/EMU 21:58 → T4-A 04-03 21:56
PROVIDERS: ADMIT Internal Medicine; ATTEND Family Medicine
PROC: 5A1D70Z Performance of Urinary Filtration, Intermittent, Less than 6 Hours Per Day (ICD-10-PCS; 2022-04-01)
PROC: 06HY33Z Insertion of Infusion Device into Lower Vein, Percutaneous Approach (ICD-10-PCS; 2022-04-05)
PROC: 0Y6M0ZD Detachment at Right Foot, Partial 4th Ray, Open Approach (ICD-10-PCS; principal; 2022-04-06)
PROC: 0Y6M0ZF Detachment at Right Foot, Partial 5th Ray, Open Approach (ICD-10-PCS; 2022-04-06)
DX: A41.9 Sepsis, unspecified organism (principal); E10.10 Type 1 diabetes mellitus with ketoacidosis without coma; N18.6 End stage renal disease; E10.52 Type 1 diabetes mellitus with diabetic peripheral angiopathy with gangrene; I12.0 Hypertensive chronic kidney disease with stage 5 chronic kidney disease or end stage renal disease; M86.171 Other acute osteomyelitis, right ankle and foot; N25.81 Secondary hyperparathyroidism of renal origin; I16.0 Hypertensive urgency; Z20.822 Contact with and (suspected) exposure to COVID-19; K21.9 Gastro-esophageal reflux disease without esophagitis; D63.1 Anemia in chronic kidney disease; H54.8 Legal blindness, as defined in USA; E10.22 Type 1 diabetes mellitus with diabetic chronic kidney disease; E10.621 Type 1 diabetes mellitus with foot ulcer; L97.509 Non-pressure chronic ulcer of other part of unspecified foot with unspecified severity; G40.909 Epilepsy, unspecified, not intractable, without status epilepticus; I15.9 Secondary hypertension, unspecified; E10.69 Type 1 diabetes mellitus with other specified complication; E10.40 Type 1 diabetes mellitus with diabetic neuropathy, unspecified; Z88.0 Allergy status to penicillin; Z88.8 Allergy status to other drugs, medicaments and biological substances; Z99.2 Dependence on renal dialysis; Z91.14 Patient's other noncompliance with medication regimen; E87.5 Hyperkalemia; E10.649 Type 1 diabetes mellitus with hypoglycemia without coma
CPT/HCPCS: 36415; 36416; 80048; 80053; 80069; 80202; 82010; 82728; 82805; 83540; 83550; 83605; 83735; 83970; 84100; 84703; 85025; 85027; 85652; 86140; 86704; 86850; 86900; 86901; 87040; 87070; 87077; 87186; 87205; 87811; 88305; 88311; 90935; 96365; 96375; 97139; C1713; G0257; J0692; J1644; J1756; J1815; J2270; J2704; J3370; J3490; J7050; J7999; Q5105; U0002

== ENCOUNTER 2022-04-27 22:26 | Inpatient (IN) | payer OTHER ==
[2022-04-27] MEDS ORDERED: hydrALAZINE 20 MG/ML VIAL ONE (23:16)
[2022-04-27 23:40] LABS: #Basophils 0.1 thou/uL (0.0-0.2); #Eosinphils 0.4 thou/uL (0.0-0.7); #Lymphocytes 1.1 thou/uL (1.20-3.40); #Monocytes 0.4 thou/uL (0.11-0.59); #Neutrophils 5.1 thou/uL (1.40-6.50); %Basophils 0.7 % (0.0-1.0); %Eosinophils 5.4 % (0.0-10.0); %Lymphocytes 15.3 % (21.0-51.0); %Monocytes 6.1 % (0.0-10.0); %Neutrophils 72.5 % (42.0-75.0); Hemoglobin 8.3 g/dL (12.0-16.0); Mean Corpuscular HGB CONC 34.5 g/dL (32.0-36.0); Mean Corpuscular Hemoglobin 32.1 pg (27.0-31.0); Mean Corpuscular Volume 93.2 fl (78.0-98.0); Mean Platelet Volume 8.2 fL (7.4-10.4); Platelet Count 226 10x3/uL (130-400); RBC Distribution Width 16.5 % (11.5-14.5); Red Blood Cell (RBC) Count 2.59 mill/uL (4.20-5.40)
[2022-04-27 23:45] LABS: Actual Bicarbonate (HCO3v) 29 mEq/L (22-28); Base Excess 6.6 mEq/L (-2.0 to +3.0); Chloride (VBG) 95 mmol/L (98-106); Hemoglobin (Hb) 9.2 g/dL (11.7-15.5); Sodium 130.7 mmol/L (133-146); pH (venous) 7.58 (7.32-7.43)
[2022-04-27] MEDS ORDERED: LORazepam 2 MG/ML SYR.(CARPUJECT) ONE (23:47)
[2022-04-27] MEDS ORDERED: Sodium Bicarb 50 MEQ/50 ML VIAL ONE (23:49)
[2022-04-28 00:01] LABS: ALT (SGPT) 9 U/L (8-55); AST (SGOT) 17 U/L (5-34); Albumin 3.1 g/dL (3.5-5.0); Alkaline Phosphatase 110 U/L (40-110); Anion Gap 15 mmol/L (10-20); BUN (Urea Nitrogen) 15 mg/dL (7.0-18.7); Bilirubin, Total 0.5 mg/dL (0.2-1.2); Calc. Creatinine Clearance 0 mL/min (70-130); Calcium 8.7 mg/dL (7.8-10.44); Carbon Dioxide 27 mmol/L (22-29); Chloride 94 mmol/L (98-107); Estimated GFR 13; Globulin 3.6 g/dL (2.4-3.5); Potassium 4.3 mmol/L (3.5-5.1); Protein, Total 6.7 g/dL (6.0-8.3); Sodium 132 mmol/L (136-145)
[2022-04-28 00:02] LABS: Acetaminophen Less than 10.0 mcg/mL (10.0-30.0); Alcohol Less than 10 mg/dL (Less than 10); Salicylate Less than 8.0 mg/dL (15.0-30.0)
[2022-04-28 00:03] LABS: CK (CPK) 50 U/L (29-168); Lipase 42 U/L (8-78); Phosphorus 3.8 mg/dL (2.3-4.7)
[2022-04-28 00:06] LABS: Glucose 661 mg/dL (70-105)
[2022-04-28] MEDS ORDERED: VANCOMYCIN 1.25 GM/250 ML BAG 1.25 GM in Premix Bag 1 BAG IVPB SCH (00:15)
[2022-04-28 00:23] LABS: Actual Bicarbonate (HCO3a) 29.6 mEq/L (22-28); Analyzer IN Cardio ER; Base Excess (BEa) 4.4 mEq/L (-2.0 to +3.0); CO2 Tension 47.5 mmHg (35.0-45.0); Calcium, Ionized (arterial) 1.11 mmol/L (1.12-1.30); Carboxyhemoglobin (COHb) 0.4 gm% (0.0-3.0); Hemoglobin (Hb) 8.6 g/dL (12.0-16.0); O2 Tension (PaO2), arterial 101.9 mmHg (80.0-100.0); Potassium - ABG Lab 3.88 mmol/L (3.70-5.30); pH, Arterial 7.41 (7.35-7.45)
[2022-04-28] MEDS ORDERED: Cefepime 2 GM VIAL ONE (00:23)
[2022-04-28] MEDS ORDERED: levETIRAcetam 500 MG/5 ML VIAL ONE (00:23)
[2022-04-28 00:28] LABS: ALV-art Gradient 38.365 mmHg (0-20); Puncture Site RRA
[2022-04-28 00:36] LABS: Bacteria/HPF None Seen HPF (None Seen); Bilirubin Negative (Negative); Blood, Urine Trace (Negative); Clarity Clear (Clear); Glucose, Urine (Dipstick) Greater than 1000 mg/dL (Negative); Ketone, Urine Negative (Negative); Leukocyte Negative Leu/uL (Negative); Nitrite Negative (Negative); Protein, Urine (Dipstick) 300 mg/dL (Neg-Trace); RBC/HPF 0-3 HPF (0-3); Specific Gravity, Urine 1.014 (1.002-1.036); Squamous Epithelial 0-3 HPF (0-3); Urobilinogen Normal mg/dL (Less than 2); WBC/HPF 0-3 HPF (0-3)
[2022-04-28] MEDS ORDERED: Insulin Regular 300 UNITS/3 ML VIAL ONE (01:16)
[2022-04-28] MEDS ORDERED: Dextrose 5% in Water 1,000 ML IV PRN (01:23)
[2022-04-28] MEDS ORDERED: hydrALAZINE 20 MG/ML VIAL SLOW IVP PRN (01:23)
[2022-04-28] MEDS ORDERED: Lorazepam 2 MG/ML VIAL SLOW IVP PRN (01:23)
[2022-04-28] MEDS ORDERED: HumaLOG 300 UNITS/3 ML VIAL SC PRN (01:23)
[2022-04-28] MEDS ORDERED: hydrALAZINE 20 MG/ML VIAL SLOW IVP SCH (01:30)
[2022-04-28] MEDS ORDERED: Vancomycin Hemodialysis Sliding Scale FS SCH (02:15)
[2022-04-28] MEDS ORDERED: hydrALAZINE 20 MG/ML VIAL ONE ×2 (02:33→12:55)
[2022-04-28] MEDS ORDERED: HumaLOG 300 UNITS/3 ML VIAL ONE (04:57)
[2022-04-28] MEDS ORDERED: HumaLOG 300 UNITS/3 ML VIAL SC SCH (05:00)
[2022-04-28 05:56] LABS: #Eosinphils 0.1 thou/uL (0.0-0.7); #Lymphocytes 0.8 thou/uL (1.20-3.40); #Monocytes 0.1 thou/uL (0.11-0.59); %Basophils 0.3 % (0.0-1.0); %Eosinophils 1.6 % (0.0-10.0); %Lymphocytes 13.2 % (21.0-51.0); %Monocytes 0.8 % (0.0-10.0); %Neutrophils 84.2 % (42.0-75.0); Hemoglobin 8.6 g/dL (12.0-16.0); Mean Corpuscular HGB CONC 32.9 g/dL (32.0-36.0); Mean Corpuscular Hemoglobin 30.5 pg (27.0-31.0); Mean Corpuscular Volume 92.8 fl (78.0-98.0); Mean Platelet Volume 8.4 fL (7.4-10.4); Platelet Count 260 10x3/uL (130-400); RBC Distribution Width 16.6 % (11.5-14.5)
[2022-04-28 06:13] LABS: ALT (SGPT) 10 U/L (8-55); AST (SGOT) 15 U/L (5-34); Albumin 3.1 g/dL (3.5-5.0); Alkaline Phosphatase 104 U/L (40-110); Anion Gap 14 mmol/L (10-20); BUN (Urea Nitrogen) 18 mg/dL (7.0-18.7); Bilirubin, Total 0.4 mg/dL (0.2-1.2); Calc. Creatinine Clearance 0 mL/min (70-130); Calcium 9.1 mg/dL (7.8-10.44); Carbon Dioxide 27 mmol/L (22-29); Chloride 96 mmol/L (98-107); Estimated GFR 12; Magnesium 1.9 mg/dL (1.6-2.6); Phosphorus 3.5 mg/dL (2.3-4.7); Potassium 3.8 mmol/L (3.5-5.1); Protein, Total 7.1 g/dL (6.0-8.3); Sodium 133 mmol/L (136-145)
[2022-04-28 06:29] LABS: Glucose 649 mg/dL (70-105)
[2022-04-28] MEDS ORDERED: Insulin Regular 300 UNITS/3 ML VIAL SC PRN (06:39)
[2022-04-28] MEDS: Insulin Regular 300 UNITS/3 ML VIAL SC PRN ×2 (06:50→12:00)
[2022-04-28 07:30] LABS: Vancomycin, Random 19.1 ug/mL (See Comment)
[2022-04-28] MEDS ORDERED: Insulin Glargine 30 UNITS/0.3 ML VIAL SC SCH (09:00)
[2022-04-28] MEDS ORDERED: levETIRAcetam in NS 500 MG in Premix Bag 1 BAG IVPB SCH (09:00)
[2022-04-28] MEDS ORDERED: NIFEdipine XL 60 MG TAB PO SCH (09:00)
[2022-04-28] MEDS: levETIRAcetam 500 MG/5 ML VIAL SLOW IVP SCH ×2 (10:33→20:34)
[2022-04-28] MEDS: Heparin 5,000 UNITS/ML VIAL SC SCH ×3 (10:33→13:43)
[2022-04-28] MEDS: Metoprolol Tartrate 50 MG TAB PO SCH ×2 (10:36→20:45)
[2022-04-28] MEDS ORDERED: Metoprolol Tartrate 50 MG TAB ONE (10:37)
[2022-04-28] MEDS: hydrALAZINE 20 MG/ML VIAL SLOW IVP PRN (13:06)
[2022-04-28] MEDS ORDERED: Dextrose 50% Abboject 50 ML SYRINGE ONE (15:58)
[2022-04-28] MEDS: Dextrose 50% Abboject 50 ML SYRINGE SLOW IVP PRN ×3 (16:01→20:30)
[2022-04-28] MEDS: Dextrose 5% in Water 1,000 ML IV SCH (17:06)
[2022-04-28 18:44] LABS: Anion Gap 16 mmol/L (10-20); BUN (Urea Nitrogen) 19 mg/dL (7.0-18.7); Calc. Creatinine Clearance 0 mL/min (70-130); Calcium 9.2 mg/dL (7.8-10.44); Carbon Dioxide 26 mmol/L (22-29); Chloride 99 mmol/L (98-107); Estimated GFR 11; Potassium 3.6 mmol/L (3.5-5.1); Sodium 137 mmol/L (136-145)
[2022-04-28 18:47] LABS: Glucose 35 mg/dL (70-105)
[2022-04-28] MEDS ORDERED: Piperacillin/Tazobactam 3.375 GM in Sodium Chloride 0.9% 100 ML IVPB SCH (20:00)
[2022-04-28] MEDS: NIFEdipine XL 60 MG TAB PO SCH (20:45)
[2022-04-29] MEDS: hydrALAZINE 20 MG/ML VIAL SLOW IVP PRN (02:30)
[2022-04-29 04:16] LABS: Hemoglobin A1c 11.6 % (4.0-6.0)
[2022-04-29 07:49] LABS: #Eosinphils 0.4 thou/uL (0.0-0.7); #Lymphocytes 1.5 thou/uL (1.20-3.40); #Monocytes 0.6 thou/uL (0.11-0.59); #Neutrophils 4.4 thou/uL (1.40-6.50); %Basophils 0.5 % (0.0-1.0); %Eosinophils 6.1 % (0.0-10.0); %Lymphocytes 22.2 % (21.0-51.0); %Monocytes 8.1 % (0.0-10.0); %Neutrophils 63.1 % (42.0-75.0); Hemoglobin 8.2 g/dL (12.0-16.0); Mean Corpuscular HGB CONC 32.8 g/dL (32.0-36.0); Mean Corpuscular Volume 94.6 fl (78.0-98.0); Mean Platelet Volume 7.5 fL (7.4-10.4); Platelet Count 274 10x3/uL (130-400); RBC Distribution Width 16.4 % (11.5-14.5); Red Blood Cell (RBC) Count 2.64 mill/uL (4.20-5.40)
[2022-04-29 07:55] LABS: Vancomycin, Random 17.4 ug/mL (See Comment)
[2022-04-29 08:05] LABS: Albumin 2.8 g/dL (3.5-5.0); Anion Gap 14 mmol/L (10-20); BUN (Urea Nitrogen) 20 mg/dL (7.0-18.7); BUN/Creatinine Ratio 3.89; Calc. Creatinine Clearance 14 mL/min (70-130); Calcium 9.1 mg/dL (7.8-10.44); Carbon Dioxide 26 mmol/L (22-29); Chloride 98 mmol/L (98-107); Estimated GFR 10; Glucose 155 mg/dL (70-105); Phosphorus 4.3 mg/dL (2.3-4.7); Sodium 134 mmol/L (136-145)
[2022-04-29] MEDS ORDERED: Ciprofloxacin Lactate/D5W 200 MG in Premix Bag 1 BAG IVPB SCH (09:00)
[2022-04-29] MEDS: Heparin 5,000 UNITS/ML VIAL SC SCH ×3 (09:42→21:05)
[2022-04-29] MEDS: levETIRAcetam 500 MG/5 ML VIAL SLOW IVP SCH ×2 (10:55→21:06)
[2022-04-29] MEDS ORDERED: levETIRAcetam 500 MG/5 ML VIAL SLOW IVP SCH (11:15)
[2022-04-29] MEDS: Metoprolol Tartrate 50 MG TAB PO SCH ×2 (14:30→21:05)
[2022-04-29] MEDS: NIFEdipine XL 60 MG TAB PO SCH ×2 (14:30→21:05)
[2022-04-29] MEDS: Piperacillin/Tazobactam 3.375 GM in Sodium Chloride 0.9% 100 ML IVPB SCH ×2 (14:31→18:31)
[2022-04-29] MEDS: Dextrose 5% in Water 1,000 ML IV SCH (14:31)
[2022-04-29] MEDS ORDERED: EPINEPHrine 1 MG/10 ML Abboject SYRINGE ONE (15:36)
[2022-04-29] MEDS ORDERED: diphenhydrAMINE 50 MG/ML VIAL ONE (15:39)
[2022-04-29] MEDS ORDERED: diphenhydrAMINE 50 MG/ML VIAL IVP SCH (15:45)
[2022-04-29] MEDS ORDERED: Fentanyl 100 MCG/2 ML VIAL SLOW IVP SCH (15:54)
[2022-04-29] MEDS ORDERED: Vancomycin HCl 500 MG in Sodium Chloride 0.9% 100 ML IVPB SCH (17:00)
[2022-04-29] MEDS ORDERED: Meropenem 1 GM in Sodium Chloride 0.9% 100 ML IVPB SCH ×2 (18:00→22:00)
[2022-04-29] MEDS: Atorvastatin Calcium 40 MG TAB PO SCH (21:05)
[2022-04-30 04:02] LABS: Anion Gap 17 mmol/L (10-20); BUN (Urea Nitrogen) 15 mg/dL (7.0-18.7); Calc. Creatinine Clearance 18 mL/min (70-130); Calcium 8.5 mg/dL (7.8-10.44); Carbon Dioxide 21 mmol/L (22-29); Chloride 102 mmol/L (98-107); Estimated GFR 14; Glucose 330 mg/dL (70-105); Potassium 5.1 mmol/L (3.5-5.1); Sodium 135 mmol/L (136-145)
[2022-04-30 05:09] LABS: #Eosinphils 0.5 thou/uL (0.0-0.7); #Lymphocytes 1.7 thou/uL (1.20-3.40); #Monocytes 0.6 thou/uL (0.11-0.59); #Neutrophils 3.6 thou/uL (1.40-6.50); %Basophils 0.6 % (0.0-1.0); %Eosinophils 7.7 % (0.0-10.0); %Lymphocytes 26.1 % (21.0-51.0); %Monocytes 8.7 % (0.0-10.0); %Neutrophils 56.8 % (42.0-75.0); Anisocytosis SLIGHT = 6-15 cells (100X) (0-5/hpf); Hemoglobin 7.5 g/dL (12.0-16.0); MDiff Complete? YES; Mean Corpuscular HGB CONC 32.2 g/dL (32.0-36.0); Mean Corpuscular Hemoglobin 30.2 pg (27.0-31.0); Mean Corpuscular Volume 93.9 fl (78.0-98.0); Mean Platelet Volume 8.7 fL (7.4-10.4); Platelet Count 241 10x3/uL (130-400); RBC Distribution Width 16.6 % (11.5-14.5); Red Blood Cell (RBC) Count 2.47 mill/uL (4.20-5.40); White Blood Cell (WBC) Count 6.3 10x3/uL (4.8-10.8)
[2022-04-30] MEDS ORDERED: hydrALAZINE 20 MG/ML VIAL SLOW IVP PRN (05:37)
[2022-04-30] MEDS ORDERED: HumaLOG 300 UNITS/3 ML VIAL SC PRN ×3 (05:44→06:47)
[2022-04-30] MEDS ORDERED: Insulin Glargine 30 UNITS/0.3 ML VIAL SC SCH ×2 (06:45→09:00)
[2022-04-30] MEDS: Aspirin 81 mg Enteric Coated Tablet PO SCH (08:04)
[2022-04-30] MEDS: Metoprolol Tartrate 50 MG TAB PO SCH ×2 (08:05→23:13)
[2022-04-30] MEDS: Heparin 5,000 UNITS/ML VIAL SC SCH ×3 (08:05→23:13)
[2022-04-30] MEDS: levETIRAcetam 500 MG/5 ML VIAL SLOW IVP SCH ×2 (08:05→23:12)
[2022-04-30] MEDS: NIFEdipine XL 60 MG TAB PO SCH ×2 (08:05→23:12)
[2022-04-30] MEDS: HumaLOG 300 UNITS/3 ML VIAL SC PRN ×2 (08:06→14:30)
[2022-04-30] MEDS ORDERED: Epoetin (ESRD) 10,000 UNITS/ML VIAL SC SCH (14:00)
[2022-04-30] MEDS ORDERED: Meropenem 500 MG in Sodium Chloride 0.9% 100 ML IVPB SCH (17:00)
[2022-04-30] MEDS ORDERED: Meropenem 1,000 MG in Sodium Chloride 0.9% 100 ML IVPB SCH (17:00)
[2022-04-30] MEDS: Meropenem 500 MG in Sodium Chloride 0.9% 100 ML IVPB SCH (18:17)
[2022-04-30] MEDS: Dextrose 5% in Water 1,000 ML IV SCH (21:22)
[2022-04-30] MEDS: Atorvastatin Calcium 40 MG TAB PO SCH (23:12)
[2022-05-01] MEDS ORDERED: hydrALAZINE 20 MG/ML VIAL SLOW IVP SCH (00:45)
[2022-05-01 07:58] LABS: #Eosinphils 0.4 thou/uL (0.0-0.7); #Lymphocytes 1.7 thou/uL (1.20-3.40); #Monocytes 0.6 thou/uL (0.11-0.59); %Basophils 0.4 % (0.0-1.0); %Eosinophils 4.7 % (0.0-10.0); %Lymphocytes 21.9 % (21.0-51.0); %Monocytes 7.8 % (0.0-10.0); %Neutrophils 65.2 % (42.0-75.0); Hemoglobin 7.4 g/dL (12.0-16.0); Mean Corpuscular HGB CONC 31.5 g/dL (32.0-36.0); Mean Corpuscular Hemoglobin 29.5 pg (27.0-31.0); Mean Corpuscular Volume 93.7 fl (78.0-98.0); Mean Platelet Volume 7.8 fL (7.4-10.4); Platelet Count 281 10x3/uL (130-400); RBC Distribution Width 16.5 % (11.5-14.5); Red Blood Cell (RBC) Count 2.49 mill/uL (4.20-5.40); White Blood Cell (WBC) Count 7.7 10x3/uL (4.8-10.8)
[2022-05-01 08:04] LABS: Vancomycin, Random 18.8 ug/mL (See Comment)
[2022-05-01 08:06] LABS: Anion Gap 17 mmol/L (10-20); BUN (Urea Nitrogen) 23 mg/dL (7.0-18.7); Calc. Creatinine Clearance 14 mL/min (70-130); Calcium 8.7 mg/dL (7.8-10.44); Carbon Dioxide 24 mmol/L (22-29); Chloride 99 mmol/L (98-107); Estimated GFR 10; Glucose 137 mg/dL (70-105); Potassium 3.7 mmol/L (3.5-5.1); Sodium 136 mmol/L (136-145)
[2022-05-01] MEDS ORDERED: Insulin Glargine 30 UNITS/0.3 ML VIAL SC SCH (09:00)
[2022-05-01] MEDS: Metoprolol Tartrate 50 MG TAB PO SCH ×2 (09:03→21:15)
[2022-05-01] MEDS: Aspirin 81 mg Enteric Coated Tablet PO SCH (09:04)
[2022-05-01] MEDS: NIFEdipine XL 60 MG TAB PO SCH ×2 (09:04→21:14)
[2022-05-01] MEDS: levETIRAcetam 500 MG/5 ML VIAL SLOW IVP SCH ×2 (09:05→21:15)
[2022-05-01] MEDS: Heparin 5,000 UNITS/ML VIAL SC SCH ×3 (09:05→21:15)
[2022-05-01] MEDS ORDERED: HOLD VANCOMYCIN FOR LEVEL >25 IVP SCH (11:15)
[2022-05-01] MEDS ORDERED: Vancomycin HCl 500 MG in Sodium Chloride 0.9% 100 ML IVPB SCH (17:00)
[2022-05-01] MEDS: Meropenem 500 MG in Sodium Chloride 0.9% 100 ML IVPB SCH (17:38)
[2022-05-01] MEDS: Dextrose 5% in Water 1,000 ML IV SCH (19:02)
[2022-05-01] MEDS: Atorvastatin Calcium 40 MG TAB PO SCH (21:14)
[2022-05-02 05:54] LABS: Anion Gap 12 mmol/L (10-20); BUN (Urea Nitrogen) 21 mg/dL (7.0-18.7); Calc. Creatinine Clearance 18 mL/min (70-130); Calcium 8.7 mg/dL (7.8-10.44); Carbon Dioxide 28 mmol/L (22-29); Chloride 100 mmol/L (98-107); Estimated GFR 15; Glucose 332 mg/dL (70-105); Potassium 4.2 mmol/L (3.5-5.1); Sodium 136 mmol/L (136-145)
[2022-05-02 06:38] LABS: Eosinophils 5 % (0-10); Hemoglobin 8.4 g/dL (12.0-16.0); Lymphocytes 36 % (21-51); MDiff Complete? YES; Mean Corpuscular HGB CONC 31.5 g/dL (32.0-36.0); Mean Corpuscular Hemoglobin 30.2 pg (27.0-31.0); Mean Corpuscular Volume 95.9 fl (78.0-98.0); Mean Platelet Volume 8.1 fL (7.4-10.4); Monocytes 3 % (0-10); Neutrophil 56 % (42-75); Platelet Count 294 10x3/uL (130-400); RBC Distribution Width 16.8 % (11.5-14.5); Red Blood Cell (RBC) Count 2.78 mill/uL (4.20-5.40); White Blood Cell (WBC) Count 5.8 10x3/uL (4.8-10.8)
[2022-05-02] MEDS ORDERED: Fentanyl 100 MCG/2 ML VIAL SLOW IVP SCH (07:01)
[2022-05-02] MEDS: Insulin Glargine 30 UNITS/0.3 ML VIAL SC SCH (08:44)
[2022-05-02] MEDS: levETIRAcetam 500 MG/5 ML VIAL SLOW IVP SCH (08:44)
[2022-05-02] MEDS: NIFEdipine XL 60 MG TAB PO SCH ×2 (08:45→22:01)
[2022-05-02] MEDS: Heparin 5,000 UNITS/ML VIAL SC SCH ×3 (08:45→22:03)
[2022-05-02] MEDS: Aspirin 81 mg Enteric Coated Tablet PO SCH (08:46)
[2022-05-02] MEDS: Metoprolol Tartrate 50 MG TAB PO SCH ×2 (08:46→22:02)
[2022-05-02] MEDS ORDERED: HYDROcodone/Acetaminophen 5/325 mg Tablet PO SCH (09:00)
[2022-05-02] MEDS ORDERED: HumaLOG 300 UNITS/3 ML VIAL SC SCH (09:15)
[2022-05-02] MEDS ORDERED: Gentamicin Sulfate 80 MG in Premix Bag 1 BAG IVPB SCH ×3 (09:30→10:00)
[2022-05-02] MEDS: Acetaminophen 325 MG TAB PO SCH ×3 (10:50→22:26)
[2022-05-02] MEDS: Meropenem 500 MG in Sodium Chloride 0.9% 100 ML IVPB SCH (18:05)
[2022-05-02] MEDS: levETIRAcetam 500 MG TAB PO SCH (22:01)
[2022-05-02] MEDS: Atorvastatin Calcium 40 MG TAB PO SCH (22:02)
[2022-05-02] MEDS: HYDROcodone/Acetaminophen 5/325 mg Tablet PO PRN (22:02)
[2022-05-03] MEDS: Acetaminophen 325 MG TAB PO SCH ×3 (05:01→15:18)
[2022-05-03 05:21] LABS: #Basophils 0.1 thou/uL (0.0-0.2); #Eosinphils 0.5 thou/uL (0.0-0.7); #Lymphocytes 2.4 thou/uL (1.20-3.40); #Monocytes 0.7 thou/uL (0.11-0.59); #Neutrophils 3.8 thou/uL (1.40-6.50); %Basophils 0.8 % (0.0-1.0); %Eosinophils 6.6 % (0.0-10.0); %Lymphocytes 32.5 % (21.0-51.0); %Monocytes 9.3 % (0.0-10.0); %Neutrophils 50.9 % (42.0-75.0); Hemoglobin 7.9 g/dL (12.0-16.0); Mean Corpuscular HGB CONC 31.7 g/dL (32.0-36.0); Mean Corpuscular Hemoglobin 29.7 pg (27.0-31.0); Mean Corpuscular Volume 93.7 fl (78.0-98.0); Platelet Count 313 10x3/uL (130-400); RBC Distribution Width 16.2 % (11.5-14.5); Red Blood Cell (RBC) Count 2.65 mill/uL (4.20-5.40); White Blood Cell (WBC) Count 7.5 10x3/uL (4.8-10.8)
[2022-05-03 05:40] LABS: Anion Gap 17 mmol/L (10-20); BUN (Urea Nitrogen) 45 mg/dL (7.0-18.7); Calc. Creatinine Clearance 13 mL/min (70-130); Calcium 9.5 mg/dL (7.8-10.44); Carbon Dioxide 25 mmol/L (22-29); Chloride 98 mmol/L (98-107); Estimated GFR 10; Glucose 280 mg/dL (70-105); Potassium 4.4 mmol/L (3.5-5.1); Sodium 136 mmol/L (136-145)
[2022-05-03] MEDS: NIFEdipine XL 60 MG TAB PO SCH ×2 (09:34→22:05)
[2022-05-03] MEDS: Aspirin 81 mg Enteric Coated Tablet PO SCH (09:34)
[2022-05-03] MEDS: Metoprolol Tartrate 50 MG TAB PO SCH ×2 (09:34→22:06)
[2022-05-03] MEDS: levETIRAcetam 500 MG TAB PO SCH ×2 (09:34→22:06)
[2022-05-03] MEDS: Insulin Glargine 30 UNITS/0.3 ML VIAL SC SCH (09:35)
[2022-05-03] MEDS: Heparin 5,000 UNITS/ML VIAL SC SCH ×3 (09:35→22:04)
[2022-05-03] MEDS ORDERED: HumaLOG 300 UNITS/3 ML VIAL SC SCH (12:45)
[2022-05-03] MEDS: HYDROcodone/Acetaminophen 5/325 mg Tablet PO PRN (16:58)
[2022-05-03] MEDS: Atorvastatin Calcium 40 MG TAB PO SCH (22:06)
[2022-05-04] MEDS: Acetaminophen 325 MG TAB PO SCH ×4 (01:02→17:18)
[2022-05-04] MEDS ORDERED: hydrALAZINE 20 MG/ML VIAL SLOW IVP PRN (01:03)
[2022-05-04 05:46] LABS: Hemoglobin 6.9 g/dL (12.0-16.0); Mean Corpuscular HGB CONC 31.8 g/dL (32.0-36.0); Mean Corpuscular Hemoglobin 29.9 pg (27.0-31.0); Mean Corpuscular Volume 94.1 fl (78.0-98.0); Mean Platelet Volume 7.7 fL (7.4-10.4); Platelet Count 348 10x3/uL (130-400); RBC Distribution Width 16.1 % (11.5-14.5); Red Blood Cell (RBC) Count 2.32 mill/uL (4.20-5.40); White Blood Cell (WBC) Count 7.7 10x3/uL (4.8-10.8)
[2022-05-04 06:00] LABS: Anion Gap 14 mmol/L (10-20); BUN (Urea Nitrogen) 67 mg/dL (7.0-18.7); Calc. Creatinine Clearance 10 mL/min (70-130); Calcium 9.1 mg/dL (7.8-10.44); Carbon Dioxide 27 mmol/L (22-29); Chloride 97 mmol/L (98-107); Estimated GFR 8; Glucose 392 mg/dL (70-105); Potassium 4.5 mmol/L (3.5-5.1); Sodium 133 mmol/L (136-145)
[2022-05-04 06:21] LABS: Anisocytosis SLIGHT = 6-15 cells (100X) (0-5/hpf); Eosinophils 5 % (0-10); Hypochromia SLIGHT = 6-15 cells (100X) (0-5/hpf); Lymphocytes 34 % (21-51); MDiff Complete? YES; Monocytes 4 % (0-10); Neutrophil 57 % (42-75); Platelet Morphology Comment Appears Adequate
[2022-05-04 07:47] LABS: Vancomycin, Random 20.4 ug/mL (See Comment)
[2022-05-04] MEDS: Aspirin 81 mg Enteric Coated Tablet PO SCH (08:31)
[2022-05-04] MEDS: Metoprolol Tartrate 100 MG TAB PO SCH ×2 (08:32→20:42)
[2022-05-04] MEDS: Insulin Glargine 30 UNITS/0.3 ML VIAL SC SCH (08:32)
[2022-05-04] MEDS: levETIRAcetam 500 MG TAB PO SCH ×2 (08:32→20:42)
[2022-05-04] MEDS: NIFEdipine XL 60 MG TAB PO SCH ×2 (08:34→20:42)
[2022-05-04] MEDS: Heparin 5,000 UNITS/ML VIAL SC SCH ×3 (08:35→20:41)
[2022-05-04] MEDS ORDERED: Labetalol HCl 100 MG TAB PO SCH (09:00)
[2022-05-04] MEDS ORDERED: Insulin Glargine 30 UNITS/0.3 ML VIAL SC SCH (12:00)
[2022-05-04] MEDS ORDERED: hydrALAZINE 25 MG TAB PO PRN (13:38)
[2022-05-04 17:00] LABS: Hemoglobin 8.9 g/dL (12.0-16.0)
[2022-05-04] MEDS ORDERED: Vancomycin HCl 250 MG in Sodium Chloride 0.9% 100 ML IVPB SCH (17:00)
[2022-05-04] MEDS ORDERED: Gentamicin Sulfate 80 MG in Premix Bag 1 BAG IVPB SCH (18:00)
[2022-05-04] MEDS: Atorvastatin Calcium 40 MG TAB PO SCH (20:43)
[2022-05-04] MEDS ORDERED: HumaLOG 300 UNITS/3 ML VIAL SC SCH (21:00)
[2022-05-04] MEDS ORDERED: Famotidine 20 MG TAB PO SCH (21:00)
[2022-05-04] MEDS ORDERED: Simethicone Chewable 80 MG TAB PO SCH (23:30)
[2022-05-05] MEDS ORDERED: Pepto Bismol Chew TAB PO SCH (00:15)
[2022-05-05] MEDS: Acetaminophen 325 MG TAB PO SCH ×5 (00:53→21:03)
[2022-05-05] MEDS ORDERED: HumaLOG 300 UNITS/3 ML VIAL SC SCH ×2 (04:00→10:30)
[2022-05-05] MEDS: levETIRAcetam 500 MG TAB PO SCH ×2 (09:07→21:02)
[2022-05-05] MEDS: Metoprolol Tartrate 100 MG TAB PO SCH (09:07)
[2022-05-05] MEDS: Heparin 5,000 UNITS/ML VIAL SC SCH ×3 (09:07→21:04)
[2022-05-05] MEDS: Insulin Glargine 30 UNITS/0.3 ML VIAL SC SCH (09:07)
[2022-05-05] MEDS: NIFEdipine XL 60 MG TAB PO SCH ×2 (09:07→21:03)
[2022-05-05] MEDS: Aspirin 81 mg Enteric Coated Tablet PO SCH (09:08)
[2022-05-05] MEDS: HYDROcodone/Acetaminophen 5/325 mg Tablet PO PRN (14:49)
[2022-05-05 17:11] LABS: #Basophils 0.1 thou/uL (0.0-0.2); #Eosinphils 0.4 thou/uL (0.0-0.7); #Lymphocytes 1.9 thou/uL (1.20-3.40); #Monocytes 0.6 thou/uL (0.11-0.59); #Neutrophils 4.2 thou/uL (1.40-6.50); %Basophils 0.8 % (0.0-1.0); %Eosinophils 5.7 % (0.0-10.0); %Lymphocytes 26.4 % (21.0-51.0); %Monocytes 7.8 % (0.0-10.0); %Neutrophils 59.3 % (42.0-75.0); Hemoglobin 7.5 g/dL (12.0-16.0); Mean Corpuscular HGB CONC 33.2 g/dL (32.0-36.0); Mean Corpuscular Hemoglobin 29.8 pg (27.0-31.0); Mean Corpuscular Volume 89.8 fl (78.0-98.0); Mean Platelet Volume 7.7 fL (7.4-10.4); Platelet Count 237 10x3/uL (130-400); RBC Distribution Width 17.4 % (11.5-14.5); White Blood Cell (WBC) Count 7.1 10x3/uL (4.8-10.8)
[2022-05-05 17:32] LABS: ALT (SGPT) Less than 7 U/L (8-55); AST (SGOT) 16 U/L (5-34); Albumin 2.7 g/dL (3.5-5.0); Alkaline Phosphatase 71 U/L (40-110); Anion Gap 13 mmol/L (10-20); BUN (Urea Nitrogen) 42 mg/dL (7.0-18.7); Bilirubin, Total 0.2 mg/dL (0.2-1.2); Calc. Creatinine Clearance 13 mL/min (70-130); Calcium 8.7 mg/dL (7.8-10.44); Carbon Dioxide 26 mmol/L (22-29); Chloride 100 mmol/L (98-107); Estimated GFR 11; Globulin 3.2 g/dL (2.4-3.5); Glucose 191 mg/dL (70-105); Potassium 3.7 mmol/L (3.5-5.1); Protein, Total 5.9 g/dL (6.0-8.3); Sodium 135 mmol/L (136-145)
[2022-05-05] MEDS ORDERED: Labetalol HCl 100 MG TAB PO SCH (21:00)
[2022-05-05] MEDS: Atorvastatin Calcium 40 MG TAB PO SCH (21:02)
[2022-05-06] MEDS: HYDROcodone/Acetaminophen 5/325 mg Tablet PO PRN (02:37)
[2022-05-06] MEDS: Acetaminophen 325 MG TAB PO SCH ×4 (03:57→21:54)
[2022-05-06 05:49] LABS: #Basophils 0.1 thou/uL (0.0-0.2); #Eosinphils 0.3 thou/uL (0.0-0.7); #Monocytes 0.5 thou/uL (0.11-0.59); #Neutrophils 3.3 thou/uL (1.40-6.50); %Eosinophils 4.1 % (0.0-10.0); %Lymphocytes 32.7 % (21.0-51.0); %Monocytes 8.3 % (0.0-10.0); Hemoglobin 6.2 g/dL (12.0-16.0); Mean Corpuscular HGB CONC 33.4 g/dL (32.0-36.0); Mean Corpuscular Hemoglobin 29.8 pg (27.0-31.0); Mean Corpuscular Volume 89.4 fl (78.0-98.0); Mean Platelet Volume 7.9 fL (7.4-10.4); Platelet Count 228 10x3/uL (130-400); RBC Distribution Width 17.3 % (11.5-14.5); Red Blood Cell (RBC) Count 2.09 mill/uL (4.20-5.40); White Blood Cell (WBC) Count 6.1 10x3/uL (4.8-10.8)
[2022-05-06 06:12] LABS: Anion Gap 14 mmol/L (10-20); BUN (Urea Nitrogen) 50 mg/dL (7.0-18.7); Calc. Creatinine Clearance 12 mL/min (70-130); Calcium 8.6 mg/dL (7.8-10.44); Carbon Dioxide 25 mmol/L (22-29); Chloride 100 mmol/L (98-107); Estimated GFR 9; Glucose 231 mg/dL (70-105); Potassium 3.7 mmol/L (3.5-5.1); Sodium 135 mmol/L (136-145)
[2022-05-06 07:17] LABS: Vancomycin, Random 16.3 ug/mL (See Comment)
[2022-05-06] MEDS: Insulin Glargine 30 UNITS/0.3 ML VIAL SC SCH (08:29)
[2022-05-06] MEDS: levETIRAcetam 500 MG TAB PO SCH ×2 (08:32→21:55)
[2022-05-06] MEDS: NIFEdipine XL 60 MG TAB PO SCH ×2 (08:32→21:59)
[2022-05-06] MEDS: Aspirin 81 mg Enteric Coated Tablet PO SCH (08:33)
[2022-05-06] MEDS: Labetalol HCl 100 MG TAB PO SCH ×2 (08:33→21:54)
[2022-05-06] MEDS ORDERED: Insulin Glargine 30 UNITS/0.3 ML VIAL SC SCH (13:00)
[2022-05-06] MEDS ORDERED: Vancomycin HCl 500 MG in Sodium Chloride 0.9% 100 ML IVPB SCH (17:00)
[2022-05-06] MEDS ORDERED: Gentamicin Sulfate 80 MG in Premix Bag 1 BAG IVPB SCH (18:00)
[2022-05-06] MEDS ORDERED: HumaLOG 300 UNITS/3 ML VIAL SC SCH (20:15)
[2022-05-06] MEDS: Atorvastatin Calcium 40 MG TAB PO SCH (21:54)
[2022-05-07] MEDS: HYDROcodone/Acetaminophen 5/325 mg Tablet PO PRN ×2 (03:45→21:44)
[2022-05-07] MEDS: Acetaminophen 325 MG TAB PO SCH ×4 (03:48→21:46)
[2022-05-07 05:06] LABS: #Eosinphils 0.2 thou/uL (0.0-0.7); #Lymphocytes 1.7 thou/uL (1.20-3.40); #Monocytes 0.5 thou/uL (0.11-0.59); #Neutrophils 3.1 thou/uL (1.40-6.50); %Basophils 0.4 % (0.0-1.0); %Eosinophils 4.2 % (0.0-10.0); %Lymphocytes 30.5 % (21.0-51.0); %Monocytes 9.6 % (0.0-10.0); %Neutrophils 55.3 % (42.0-75.0); Hemoglobin 7.1 g/dL (12.0-16.0); Mean Corpuscular HGB CONC 33.2 g/dL (32.0-36.0); Mean Corpuscular Volume 90.4 fl (78.0-98.0); Mean Platelet Volume 8.1 fL (7.4-10.4); Platelet Count 202 10x3/uL (130-400); RBC Distribution Width 16.4 % (11.5-14.5); Red Blood Cell (RBC) Count 2.37 mill/uL (4.20-5.40); White Blood Cell (WBC) Count 5.7 10x3/uL (4.8-10.8)
[2022-05-07 05:21] LABS: ALT (SGPT) 9 U/L (8-55); AST (SGOT) 21 U/L (5-34); Albumin 2.6 g/dL (3.5-5.0); Alkaline Phosphatase 70 U/L (40-110); Anion Gap 13 mmol/L (10-20); BUN (Urea Nitrogen) 44 mg/dL (7.0-18.7); Bilirubin, Total 0.2 mg/dL (0.2-1.2); Calc. Creatinine Clearance 15 mL/min (70-130); Calcium 8.5 mg/dL (7.8-10.44); Carbon Dioxide 25 mmol/L (22-29); Chloride 100 mmol/L (98-107); Estimated GFR 12; Globulin 3.1 g/dL (2.4-3.5); Potassium 4.4 mmol/L (3.5-5.1); Protein, Total 5.7 g/dL (6.0-8.3); Sodium 134 mmol/L (136-145)
[2022-05-07 05:27] LABS: Glucose 492 mg/dL (70-105)
[2022-05-07] MEDS ORDERED: HumaLOG 300 UNITS/3 ML VIAL SC SCH ×2 (06:00→11:00)
[2022-05-07] MEDS: NIFEdipine XL 60 MG TAB PO SCH ×2 (08:46→21:46)
[2022-05-07] MEDS: Insulin Glargine 30 UNITS/0.3 ML VIAL SC SCH (08:47)
[2022-05-07] MEDS: Labetalol HCl 100 MG TAB PO SCH ×2 (08:47→21:45)
[2022-05-07] MEDS: Aspirin 81 mg Enteric Coated Tablet PO SCH (08:47)
[2022-05-07] MEDS: levETIRAcetam 500 MG TAB PO SCH ×2 (08:47→21:45)
[2022-05-07] MEDS ORDERED: Insulin Glargine 30 UNITS/0.3 ML VIAL SC SCH (11:00)
[2022-05-07] MEDS: Atorvastatin Calcium 40 MG TAB PO SCH (21:46)
[2022-05-08 05:01] LABS: Hemoglobin 8.3 g/dL (12.0-16.0); Mean Corpuscular HGB CONC 32.9 g/dL (32.0-36.0); Mean Corpuscular Hemoglobin 30.3 pg (27.0-31.0); Mean Corpuscular Volume 91.9 fl (78.0-98.0); Mean Platelet Volume 7.9 fL (7.4-10.4); Platelet Count 208 10x3/uL (130-400); RBC Distribution Width 15.6 % (11.5-14.5); Red Blood Cell (RBC) Count 2.74 mill/uL (4.20-5.40); White Blood Cell (WBC) Count 7.7 10x3/uL (4.8-10.8)
[2022-05-08] MEDS: Acetaminophen 325 MG TAB PO SCH ×4 (05:16→21:11)
[2022-05-08 05:30] LABS: ALT (SGPT) 13 U/L (8-55); AST (SGOT) 22 U/L (5-34); Albumin 2.6 g/dL (3.5-5.0); Alkaline Phosphatase 75 U/L (40-110); Anion Gap 13 mmol/L (10-20); BUN (Urea Nitrogen) 61 mg/dL (7.0-18.7); Bilirubin, Total 0.3 mg/dL (0.2-1.2); Calc. Creatinine Clearance 12 mL/min (70-130); Calcium 8.8 mg/dL (7.8-10.44); Carbon Dioxide 26 mmol/L (22-29); Chloride 101 mmol/L (98-107); Estimated GFR 9; Globulin 3.2 g/dL (2.4-3.5); Glucose 248 mg/dL (70-105); Potassium 4.4 mmol/L (3.5-5.1); Protein, Total 5.8 g/dL (6.0-8.3); Sodium 136 mmol/L (136-145)
[2022-05-08 05:44] LABS: Band 2 % (5-11); Eosinophils 5 % (0-10); Hypochromia SLIGHT = 6-15 cells (100X) (0-5/hpf); Lymphocytes 39 % (21-51); MDiff Complete? YES; Neutrophil 54 % (42-75); Platelet Morphology Comment Appears Adequate
[2022-05-08] MEDS ORDERED: Vancomycin Hemodialysis Sliding Scale FS SCH (07:15)
[2022-05-08] MEDS: levETIRAcetam 500 MG TAB PO SCH ×2 (08:40→21:09)
[2022-05-08] MEDS: Aspirin 81 mg Enteric Coated Tablet PO SCH (08:41)
[2022-05-08] MEDS: NIFEdipine XL 60 MG TAB PO SCH ×2 (08:41→21:09)
[2022-05-08] MEDS: Labetalol HCl 100 MG TAB PO SCH ×2 (08:41→21:09)
[2022-05-08] MEDS: Insulin Glargine 30 UNITS/0.3 ML VIAL SC SCH (08:46)
[2022-05-08] MEDS ORDERED: Epoetin (ESRD) 10,000 UNITS/ML VIAL SC SCH (09:00)
[2022-05-08 14:53] VITALS: BMI 21.2
[2022-05-08] MEDS ORDERED: Vancomycin HCl 500 MG in Sodium Chloride 0.9% 100 ML IVPB SCH (17:00)
[2022-05-08] MEDS: Atorvastatin Calcium 40 MG TAB PO SCH (21:09)
[2022-05-09] MEDS: Acetaminophen 325 MG TAB PO SCH ×3 (05:17→17:07)
[2022-05-09 05:38] LABS: #Eosinphils 0.3 thou/uL (0.0-0.7); #Lymphocytes 1.6 thou/uL (1.20-3.40); #Monocytes 0.6 thou/uL (0.11-0.59); #Neutrophils 5.5 thou/uL (1.40-6.50); %Basophils 0.3 % (0.0-1.0); %Eosinophils 3.7 % (0.0-10.0); %Lymphocytes 19.8 % (21.0-51.0); %Monocytes 7.9 % (0.0-10.0); %Neutrophils 68.3 % (42.0-75.0); Hemoglobin 8.6 g/dL (12.0-16.0); Mean Corpuscular HGB CONC 33.3 g/dL (32.0-36.0); Mean Corpuscular Hemoglobin 30.9 pg (27.0-31.0); Mean Corpuscular Volume 92.9 fl (78.0-98.0); Platelet Count 199 10x3/uL (130-400); RBC Distribution Width 15.2 % (11.5-14.5)
[2022-05-09 06:04] LABS: ALT (SGPT) 18 U/L (8-55); AST (SGOT) 32 U/L (5-34); Albumin 2.7 g/dL (3.5-5.0); Alkaline Phosphatase 73 U/L (40-110); Anion Gap 17 mmol/L (10-20); BUN (Urea Nitrogen) 56 mg/dL (7.0-18.7); Bilirubin, Total 0.3 mg/dL (0.2-1.2); Calc. Creatinine Clearance 15 mL/min (70-130); Calcium 8.5 mg/dL (7.8-10.44); Carbon Dioxide 24 mmol/L (22-29); Chloride 95 mmol/L (98-107); Estimated GFR 12; Globulin 3.3 g/dL (2.4-3.5); Glucose 569 mg/dL (70-105); Potassium 5.6 mmol/L (3.5-5.1); Sodium 130 mmol/L (136-145)
[2022-05-09] MEDS ORDERED: HumaLOG 300 UNITS/3 ML VIAL SC SCH ×2 (06:15→08:45)
[2022-05-09] MEDS: Labetalol HCl 100 MG TAB PO SCH (08:43)
[2022-05-09] MEDS: Aspirin 81 mg Enteric Coated Tablet PO SCH (08:43)
[2022-05-09] MEDS: levETIRAcetam 500 MG TAB PO SCH (08:43)
[2022-05-09] MEDS: NIFEdipine XL 60 MG TAB PO SCH (08:44)
[2022-05-09] MEDS: Insulin Glargine 30 UNITS/0.3 ML VIAL SC SCH (08:44)
[2022-05-09] MEDS ORDERED: Docusate 100 MG CAP PO PRN (09:30)
[2022-05-09 16:32] VITALS: BP 142/74; TEMP 97.7
== END 2022-05-09 17:24 | disposition swing bed (61) | DRG 622 ==
LOC: ERS 22:26 → ERHOLD 04-28 01:07 → OBSVTOIN 04-28 12:06 → NEURO 04-28 16:24 → IMCU/EMU 04-28 19:14 → NEURO 04-30 20:23
PROVIDERS: ADMIT Family Medicine; ATTEND Family Medicine
PROC: 0KBV0ZZ Excision of Right Foot Muscle, Open Approach (ICD-10-PCS; principal; 2022-04-28)
PROC: 5A1D70Z Performance of Urinary Filtration, Intermittent, Less than 6 Hours Per Day (ICD-10-PCS; 2022-04-29)
PROC: 30233N1 Transfusion of Nonautologous Red Blood Cells into Peripheral Vein, Percutaneous Approach (ICD-10-PCS; 2022-05-04)
DX: E10.628 Type 1 diabetes mellitus with other skin complications (principal); G93.41 Metabolic encephalopathy; L03.115 Cellulitis of right lower limb; I16.1 Hypertensive emergency; M86.171 Other acute osteomyelitis, right ankle and foot; Z20.822 Contact with and (suspected) exposure to COVID-19; E10.621 Type 1 diabetes mellitus with foot ulcer; L97.519 Non-pressure chronic ulcer of other part of right foot with unspecified severity; E10.22 Type 1 diabetes mellitus with diabetic chronic kidney disease; K21.9 Gastro-esophageal reflux disease without esophagitis; H54.8 Legal blindness, as defined in USA; N25.81 Secondary hyperparathyroidism of renal origin; E10.69 Type 1 diabetes mellitus with other specified complication; I10 Essential (primary) hypertension; I15.9 Secondary hypertension, unspecified; E10.649 Type 1 diabetes mellitus with hypoglycemia without coma; G40.909 Epilepsy, unspecified, not intractable, without status epilepticus; N18.6 End stage renal disease; I16.0 Hypertensive urgency; D63.1 Anemia in chronic kidney disease; E10.65 Type 1 diabetes mellitus with hyperglycemia; Z89.421 Acquired absence of other right toe(s); Z91.14 Patient's other noncompliance with medication regimen; Z99.2 Dependence on renal dialysis; Z88.8 Allergy status to other drugs, medicaments and biological substances; Z88.0 Allergy status to penicillin; Z79.4 Long term (current) use of insulin; Z79.82 Long term (current) use of aspirin; Z86.73 Personal history of transient ischemic attack (TIA), and cerebral infarction without residual deficits
CPT/HCPCS: 36415; 36416; 36430; 36600; 51701; 71045; 80048; 80053; 80069; 80170; 80177; 80202; 80307; 81003; 81015; 82010; 82550; 82805; 83036; 83605; 83690; 83735; 84100; 84145; 84443; 85025; 86850; 86900; 86901; 87040; 87070; 87086; 87205; 90935; 93005; 95712; 95816; 95819; 95957; 96361; 96374; 96375; 97139; G0257; G0378; J0360; J0692; J0744; J1200; J1580; J1611; J1644; J1815; J1953; J2060; J2185; J2543; J3010; J3370; J3371; J3490; J7070; J7999; P9016